=== PATIENT | female | born 1975 | race Caucasian/White ===

== ENCOUNTER 2020-10-14 06:16 | Outpatient (REF) | payer OTHER, SELFPAY ==
[2020-10-14 11:33] LABS: Alanine Aminotransferase 21 U/L (0-31); Aspartate Amino Transferase 23 U/L (5-31); Cholesterol 149 mg/dL; HDL Cholesterol 40 mg/dL; LDL Cholesterol Calculated 91 mg/dl; Triglycerides 91 mg/dL
== END 2020-10-14 06:17 | disposition home or self-care (01) ==
LOC: HO.HMGCLDS 06:16
PROVIDERS: PCP Internal Medicine; Visit Provider Internal Medicine
DX: E78.5 Hyperlipidemia, unspecified (principal)
CPT/HCPCS: 80061; 84450; 84460

== ENCOUNTER 2021-08-03 07:08 | Outpatient (REF) | payer OTHER, SELFPAY ==
[2021-08-03 12:12] LABS: Alanine Aminotransferase 29 U/L (0-31); Aspartate Amino Transferase 26 U/L (5-31); Cholesterol 177 mg/dL; HDL Cholesterol 55 mg/dL; LDL Cholesterol Calculated 105 mg/dl; Triglycerides 88 mg/dL
== END 2021-08-03 07:09 | disposition home or self-care (01) ==
LOC: HO.HMGCLDS 07:08
PROVIDERS: PCP Internal Medicine; Visit Provider Internal Medicine
DX: Z00.00 Encounter for general adult medical examination without abnormal findings (principal); E78.5 Hyperlipidemia, unspecified
CPT/HCPCS: 36415; 80061; 84450; 84460

== ENCOUNTER 2022-12-12 07:37 | Outpatient (REF) | payer OTHER, SELFPAY ==
[2022-12-12 12:05] LABS: Alanine Aminotransferase 25 U/L (0-31); Anion Gap 14 (12-20); Aspartate Amino Transferase 27 U/L (5-31); Blood Urea Nitrogen 18 mg/dL (9-16); Calcium 9.4 mg/dL (8.4-10.2); Carbon Dioxide 27 mmol/L (22-29); Chloride 103 mmol/L (96-108); Cholesterol 182 mg/dL; Estimated Glomerular Filt Rate > 60; Glucose Fasting 124 mg/dL (60-99); HDL Cholesterol 49 mg/dL; LDL Cholesterol Calculated 112 mg/dl; Potassium 4.1 mmol/L (3.3-5.1); Sodium 140 mmol/L (135-145); Triglycerides 108 mg/dL
== END 2022-12-12 07:38 | disposition home or self-care (01) ==
LOC: HO.HMGCLDS 07:37
PROVIDERS: PCP Internal Medicine; Visit Provider Internal Medicine
DX: E78.5 Hyperlipidemia, unspecified (principal); I10 Essential (primary) hypertension
CPT/HCPCS: 36415; 80048; 80061; 84450; 84460

== ENCOUNTER 2023-09-10 06:55 | Outpatient (REF) | payer OTHER, SELFPAY ==
[2023-09-10 12:04] LABS: Anion Gap 16 (12-20); Blood Urea Nitrogen 15 mg/dL (9-16); Calcium 10.1 mg/dL (8.4-10.2); Carbon Dioxide 27 mmol/L (22-29); Chloride 102 mmol/L (96-108); Cholesterol 188 mg/dL (<200); Estimated Glomerular Filt Rate > 60; Glucose Fasting 112 mg/dL (60-99); HDL Cholesterol 50 mg/dL (>40); LDL Cholesterol Calculated 113 mg/dL (<100); Sodium 141 mmol/L (135-145); Triglycerides 129 mg/dL (<150)
[2023-09-10 12:22] LABS: Estimated Average Glucose 120 mg/dL; Hemoglobin A1c % 5.8 % (<6.0)
== END 2023-09-10 06:56 | disposition home or self-care (01) ==
LOC: HO.HMGCLDS 06:55
PROVIDERS: PCP Internal Medicine; Visit Provider Internal Medicine
DX: Z00.01 Encounter for general adult medical examination with abnormal findings (principal); F41.1 Generalized anxiety disorder; I10 Essential (primary) hypertension; R73.01 Impaired fasting glucose; E78.5 Hyperlipidemia, unspecified
CPT/HCPCS: 36415; 80048; 80061; 83036

== ENCOUNTER 2023-09-12 09:39 | Outpatient (AMB) | payer OTHER, SELFPAY ==
[2023-09-12 09:55] VITALS: BP 132/84; PULSE 52; O2SAT 99; BMI 29.3
--- NOTE | 2023-09-12 09:55 | A.OFFPC_ITS ---
Vital Signs 09/12/23 09:55 Height 5 ft 3 in Weight 165 lb 4 oz BMI 29.3 BP 132/84 Blood Pressure Location Lt brachial Position Sitting Pulse 52 Pulse Source Pulse Oximeter Pulse Oximetry (%) 99 Oxygen Delivery Method Room Air Intake Visit Reasons: 4M Follow-up lipids Intake Note: pt is here to follow up for her lab results Allergies amlodipine Allergy (Unknown, Verified 11/04/23 03:38) rash amoxicillin [AMOXICILLIN] Allergy (Unknown, Verified 11/04/23 03:38) HIVES, rash lisinopril Allergy (Unknown, Verified 11/04/23 03:38) stomach pains Sulfa (Sulfonamide Antibiotics) [SULFA (SULFONAMIDE ANTIBIOTICS)] Allergy (Unknown, Verified 11/04/23 03:38) HIVES Medication List - Last Reconciled 11/04/23 by Janice Strauss MD atorvastatin 20 mg PO DAILY escitalopram oxalate 10 mg PO DAILY losartan 25 mg PO DAILY 90 days metoprolol tartrate 75 mg (1.5 x 50 mg) PO BID 90 days Tobacco use date assessed: 09/12/23 Dental Screening Dental Screen Date: 09/12/23 Did you have a dental visit in the last 12 months?: Yes Did you have a dental problem in the last 6 months where you did not have access to dental care?: No Was dental information given to patient?: Patient has dentist HPI 4M Follow-up lipids HPI Details 48-year-old lady here today for follow-u p on her lipids, generalized anxiety disorder, and hypertension. She is currently taking atorvastatin 20 mg once a day. Recent fasting labs showed normal electrolytes, renal function, and fasting lipid panel. [facility] [place] Medical History Impaired fasting glucose Annual visit for general adult medical examination with abnormal findings Essential hypertension Generalized anxiety disorder Dyslipidemia Social History Housing: House Patient Tobacco Use Status: Never used Tobacco e-Cigarette/Vaping Use: Never Used Second Hand Smoke Exposure: No Current occupational status: employed Cognitive needs: No Hearing needs: No Vision needs: Yes Questionnaire PHQ-9 Over the last 2 weeks, how often have you been bothered by any of the following problems? 1. Little interest or pleasure in doing things: not at all 2. Feeling down, depressed, or hopeless: not at all 3. Trouble falling or staying asleep, or sleeping too much: not at all 4. Feeling tired or having little energy: not at all 5. Poor appetite or overeating: not at all 6. Feeling bad about yourself - or that you are a failure or have let yourself or your family down: not at all 7. Trouble concentrating on things, such as reading the newspaper or watching television: not at all 8. Moving or speaking so slowly that other people could have noticed. Or the opposite - being so fidgety or restless that you have been moving around a lot more than usual: not at all 9. Thoughts that you would be better off or of hurting yourself in some way: not at all Total score: 0 Depression Screening Interpretation: Negative Depression Screening Done: Yes 21700 - PHQ-9 Billing: Yes Source: Developed by Drs. Evan Plummer, Rhoda Xiong, Negro Winters and colleagues, with an educational dorota from [employer]. Thrive Questionnaire Date Thrive assessed: 09/12/23 I am a: Patient What is your living situation today?: I have a steady place to live Within the past 12 months, did the food you bought not last and you didn't have the money to get more?: Never true Within the past 12 months, did you worry whether your food would run out before you got money to buy more?: Never true Do you have trouble paying for medicines?: No Do you have trouble getting transportation to medical appointments?: No Do you have trouble paying your heating and electricity bill?: No Do you have trouble taking care of your child, family member or friend?: No Do you have trouble with day-to-day activities such as bathing, preparing meals, shopping, managing finances, etc.?: No Are you currently unemployed and looking for a job?: No Are you interested in more education?: No AUDIT C Alcohol Use Questionnaire (AUDIT-C) 1. How often do you have a drink containing alcohol?: 2-4 times a month 2. How many drinks containing alcohol do you have on a typical day when you are drinking?: 1 or 2 3. How often do you have six or more drinks on one occasion?: Never Total Score: 2 LIZBETH-7 AMB Questionnaire LIZBETH-7 Date LIZBETH - 7 assessed: 09/12/23 Feeling nervous, anxious, or on edge: 0 = Not at all Not being able to stop or control worryin = Not at all Worrying too much about different things: 0 = Not at all Trouble relaxin = Not at all Being so restless that it is hard to sit still: 0 = Not at all Becoming easily annoyed or irritable: 0 = Not at all Feeling afraid as if something awful might happen: 0 = Not at all Total LIZBETH-7 score (0-4 normal; 5-9 mild; 10-14 moderate; 15-21 severe): 0 Source: Developed by Drs. Evan Plummer, Rhoda Xiong, Negro Winters and colleagues, with an educational dorota from [employer]. LIZBETH-7 Assessment Billing LIZBETH-7 Assessment Tool: LIZBETH-7 Assessment 95772 Review of Systems Const Denies body aches, Denies fatigue, Denies fever(s), Denies headache(s) and Denies weakness Eyes Denies change in vision ENT Denies dizziness, Denies headache(s), Denies nasal congestion, Denies nasal discharge and Denies sore throat Card Denies chest pain, Denies lightheadedness, Denies palpitations and Denies dyspnea Resp Denies chest congestion, Denies cough, Denies dyspnea and Denies wheezing GI Denies abdominal pain, Denies change in bowel habits and Denies heartburn Denies urinary frequency, Denies dysuria and Denies urinary urgency Musc Reports no additional complaints Skin/Breast Denies lesions and Denies rash Neuro Denies dizziness, Denies headache(s) and Denies weakness Psych Reports no additional complaints Endo Denies fatigue, Denies polydipsia, Denies polyuria and Denies palpitations Otis/Lymph Denies easy bruising Aller/Immun Denies seasonal rhinorrhea and Denies wheezing Physical exam (Primary Care) Vital Signs: Last Vital Signs Pulse 52 09/12/23 09:55 BP 132/84 09/12/23 09:55 Pulse Ox 99 09/12/23 09:55 Oxygen Delivery Method Room Air 09/12/23 09:55 BMI result Body Mass Index 29.3 Tobacco/Smoking Status: Tobacco use Status Tobacco use date assessed 09/12/23 09/12/23 10:01 Patient Tobacco Use Status Never used Tobacco 09/12/23 09:56 e-Cigarette/Vaping Use Never Used 09/12/23 09:56 PHQ-9: PHQ-9 Score PHQ-9: Total score 0 11/04/23 03:42 Depression Screening Interpretation: Negative Thrive Assessment: Date of Thrive Assessment Date Thrive assessed 09/12/23 09/12/23 10:09 Const General: cooperative, comfortable and no acute distress Orientation/consciousness: patient oriented x3 Limitations: no limitations HENMT Ears: hearing grossly normal bilaterally, external ears normal, TM's normal bilaterally and EAC's normal General nose exam: Normal external nose present, Normal nasal mucous membranes and turbinates present and No nasal discharge present Mouth: Normal oral and palatal mucosa present, oropharynx normal and moist muco us membranes Throat: Yes posterior oropharynx normal Eyes Pupils: Equal, round and reactive pupils present Neck Neck: Yes full ROM, Yes no lymphadenopathy and Yes supple Resp Effort & Inspection: normal respiratory effort and able to speak in complete sentences Auscultation: clear to auscultation bilaterally Cardio Rate: regular rate Rhythm: regular rhythm Heart sounds: S1 normal heart sound present and S2 normal heart sound present GI Inspection: Yes normal to inspection Palpation (GI): Soft to palpation, nontender and no masses Auscultation: normal bowel sounds General: Yes deferred (Goes to [facility] for her cervical cancer screening and routine exam) Back/Spine/Pelvis Back: No back tenderness Skin General skin exam: no rashes or lesions noted Neuro General: patient oriented x3, gait normal, tone normal, moves all extremities, Normal light touch and pain sensation and no focal motor deficits Cranial nerves: Yes Equal, round and reactive pupils present Cognition (Neuro): normal cognition Gait exam (Neuro): Normal gait present Motor exam (neuro): 5/5 motor strength present throughout Extrem General: Yes full ROM, Yes no joint enlargement, Yes no clubbing, cyanosis or edema, Yes no calf tenderness and Yes normal gait Psych Appearance: grossly normal Affect: normal affect Attitude: cooperative Thought process: Normal thought process present Thought content: Normal thought content present Results Reviewed Results Reviewed: RUN: 09/12/23 1026 PAGE 1 [facility] [address] [place] [id number] Light Bulb Replacer: Lee Guajardo M.D. Specimen Inquiry Name: Sera Heath Age/Sex: 48/F : 1975 Unit#: [id number] Attend Dr: Janice Strauss MD Re09/10/23 Status: DEP REF Location: [facility] Disch: SPEC : [id number] LINDA: 09/10/23 STATUS: COMP REQ : [id number] RECD: 09/10/[address]: Janice Strauss MD COMP: 09/10/23 ENTERED: 09/10/[address] [facility] [address]: ORDERED: Met Prof Fast, Lipid Panel Test Result Flag Reference Site Sodium 141 135-145 mmol/L Potassium 4.0 3.3-5.1 mmol/L CL 102 96-108 mmol/L CO2 27 22-29 mmol/L Gap 16 12-20 BUN 15 9-16 mg/dL Creat 0.83 0.5-1.4 mg/dL EGFR > 60 NOTE: For -[place] individuals, multiply the result by 1.210. Chronic Kidney Disease: Estimated GFR < 60 mL/min/1.73m2 Severe Kidney Disease: Estimated GFR < 15 mL/min/1.73m2 FBS 112 H 60-99 mg/dL A fasting glucose from 100-125 mg/dl is considered impaired (pre-diabetes). CA 10.1 # 8.4-10.2 mg/dL Triglyceride 129 <150 mg/dL Desirable Triglyceride: less than 150 mg/dL Borderline High Triglyceride 150-199 mg/dL High Triglyceride: 200-499 mg/dL Very High Triglyceride: greater than or equal to 5OO mg/dL Cholesterol 188 <200 mg/dL Desirable Cholesterol: less than 200 mg/dL Borderline High Cholesterol: 200-239 mg/dL High Cholesterol: greater than 239 mg/dL LDL Calculated 113 H <100 mg/dL Desirable LDL: less than 100 mg/dL Near Optimal/Above Optimal LDL: 110-129 mg/dL Borderline High LDL: 130-159 mg/dL High LDL: 160-189 mg/dL Very High LDL: greater than or equal to 190 mg/dL HDL 50 >40 mg/dL Desirable HDL: greater than 40 mg/dL Note: This HDL assay may give artificially low results in patients with liver disease. Assessment and Plan Assessment & Plan (1) Dyslipidemia: Code(s): E78.5 - Hyperlipidemia, unspecified Plan: Reviewed recent fasting lipid profile with patient with levels within normal limits . Continue with atorvastatin 20 mg daily , in addition to adherence to low-cholesterol diet and regular exercise, at least 30 minutes 3 to 4 times a week. Advised patient to make healthy food choices, eat more fruits, vegetables, whole grains, wild caught fish and low-fat dairy. Limit amount of meat and fried or fatty food products, as well as processed foods and fast foods. Follow-up scheduled with repeat fasting lipid panel in 6 months. (2) Impaired fasting glucose: Code(s): R73.01 - Impaired fasting glucose Plan: Your fasting blood sugars elevated above 100 mg/dL. Impaired glucose metabolism O2 at risk for developing diabetes mellitus type 2, as well as heart attack and stroke later on. Lifestyle changes at just weight loss, healthy eating habits, and regular exercise are important, and can prevent the progression to diabetes (3) Essential hypertension: Code(s): I10 - Essential (primary) hypertension Plan: Blood pressure at goal of less than 130/80. Continue with current medication. Reinforced importance of following a low sodium diet, getting regular exercise, and lowering stress levels. (4) Generalized anxiety disorder: Code(s): F41.1 - Generalized anxiety disorder Plan: Continue with escitalopram and buspirone Orders: Orders Alanine Aminotransferase 03/18/24 R73.01 - Impaired fasting glucose, Z00.01 - Encounter for general adult medical examination with abnormal findings, I10 - Essential (primary) hypertension, F41.1 - Generalized anxiety disorder, E78.5 - Hyperlipidemia, unspecified Aspartate Amino Transferase 03/18/24 R73.01 - Impaired fasting glucose, Z00.01 - Encounter for general adult medical examination with abnormal findings, I10 - Essential (primary) hypertension, F41.1 - Generalized anxiety disorder, E78.5 - Hyperlipidemia, unspecified Basic Metabolic Panel Fasting 03/18/24 R73.01 - Impaired fasting glucose, Z00.01 - Encounter for general adult medical examination with abnormal findings, I10 - Essential (primary) hypertension, F41.1 - Generalized anxiety disorder, E78.5 - Hyperlipidemia, unspecified Lipid Panel 03/18/24 R73.01 - Impaired fasting glucose, Z00.01 - Encounter for general adult medical examination with abnormal findings, I10 - Essential (primary) hypertension, F41.1 - Generalized anxiety disorder, E78.5 - Hyperlipidemia, unspecified Hemoglobin A1c 03/18/24 R73.01 - Impaired fasting glucose, Z00.01 - Encounter for general adult medical examination with abnormal findings, I10 - Essential (primary) hypertension, F41.1 - Generalized anxiety disorder, E78.5 - Hyperlipidemia, unspecified Vitamin D 25-OH Total 03/18/24 R73.01 - Impaired fasting glucose, Z00.01 - Encounter for general adult medical examination with abnormal findings, I10 - Essential (primary) hypertension, F41.1 - Generalized anxiety disorder, E78.5 - Hyperlipidemia, unspecified Coding Level of Care Code Est Pt Level 4 (15134) Diagnoses Dyslipidemia E78.5 Impaired fasting glucose R73.01 Essential hypertension I10 Generalized anxiety disorder F41.1 Additional Codes LIZBETH-7 Assessment Billing - LIZBETH-7 Assessment Tool: LIZBETH-7 Assessment 57100 ([id number])
== END 2023-09-12 12:51 | disposition home or self-care (01) ==
PROVIDERS: PCP Internal Medicine; Visit Provider Internal Medicine
DX: E78.5 Hyperlipidemia, unspecified (principal); R73.01 Impaired fasting glucose; I10 Essential (primary) hypertension; F41.1 Generalized anxiety disorder
CPT/HCPCS: 99214

== ENCOUNTER 2023-10-02 10:18 | Outpatient (AMB) | payer OTHER, SELFPAY ==
[2023-10-02 10:48] VITALS: BP 100/68; PULSE 63; TEMP 37.2; O2SAT 98; BMI 29.3
--- NOTE | 2023-10-02 10:48 | MHC.PC.OV ---
Vital Signs 10/02/23 10:48 Height 5 ft 3 in Weight 165 lb 4 oz BMI 29.3 BP 100/68 Blood Pressure Location Rt brachial Position Sitting Pulse 63 Pulse Source Pulse Oximeter Temp 99.0 F Temp Source Oral Pulse Oximetry (%) 98 Oxygen Delivery Method Room Air Intake Visit Reasons: Diarrhea x 5 days Intake Note: pt is here for diarrhea for 5 days no vomiting or nausea she just gets cramps and then diarrhea comes pt says she eats then comes right out Allergies amlodipine Allergy (Unknown, Verified 11/04/23 03:38) rash amoxicillin [AMOXICILLIN] Allergy (Unknown, Verified 11/04/23 03:38) HIVES, rash lisinopril Allergy (Unknown, Verified 11/04/23 03:38) stomach pains Sulfa (Sulfonamide Antibiotics) [SULFA (SULFONAMIDE ANTIBIOTICS)] Allergy (Unknown, Verified 11/04/23 03:38) HIVES Medication List - Last Reconciled 01/08/24 by Janice Strauss MD atorvastatin 20 mg PO DAILY escitalopram oxalate 10 mg PO DAILY losartan 25 mg PO DAILY 90 days metoprolol tartrate 75 mg (1.5 x 50 mg) PO BID 90 days Tobacco use date assessed: 10/02/23 HPI Diarrhea x 5 days HPI Details 49-year-old lady here today complaining of intermittent episodes of loose stool present for the last 5 days peer denies any accompanying fever, no nausea, no vomiting. Patient does report having intermittent episodes of lower abdominal cramping followed by diarrhea. Denies any blood in stool. Otherwise she has been feeling well, no other household members have same complaints.. No recent travel or new food intake reported [facility] Medical History Impaired fasting glucose Annual visit for general adult medical examination with abnormal findings Essential hypertension Generalized anxiety disorder Dyslipidemia Social History Housing: House Patient Tobacco Use Status: Never used Tobacco e-Cigarette/Vaping Use: Never Used Second Hand Smoke Exposure: No Current occupational status: employed Cognitive needs: No Hearing needs: No Vision needs: Yes Questionnaire PHQ-9 Over the last 2 weeks, how often have you been bothered by any of the following problems? Depression Screening Interpretation: Negative Depression Screening Done: Yes Source: Developed by Drs. Evan Plummer, Rhoda Xiong, Negro Winters and colleagues, with an educational dorota from [employer]. Thrive Questionnaire Date Thrive assessed: 09/12/23 LIZBETH-7 AMB Questionnaire LIZBETH-7 Date LIZBETH - 7 assessed: 09/12/23 Source: Developed by Drs. Evan Plummer, Rhoda Xiong, Negro Winters and colleagues, with an educational dorota from [employer]. Review of Systems Const All systems reviewed & are unremarkable except as noted in HPI and below Physical exam (Primary Care) Vital Signs: Last Vital Signs Temp 99.0 F 10/02/23 10:48 Pulse 63 10/02/23 10:48 BP 100/68 10/02/23 10:48 Pulse Ox 98 10/02/23 10:48 Oxygen Delivery Method Room Air 10/02/23 10:48 BMI result Body Mass Index 29.3 Tobacco/Smoking Status: Tobacco use Status Tobacco use date assessed 10/02/23 10/02/23 10:54 Patient Tobacco Use Status Never used Tobacco 10/02/23 10:54 e-Cigarette/Vaping Use Never Used 10/02/23 10:54 Depression Screening Interpretation: Negative Thrive Assessment: Date of Thrive Assessment Date Thrive assessed 09/12/23 10/02/23 10:54 Const General: no acute distress Orientation/consciousness: patient oriented x3 HENMT Ears: EAC's normal Mouth: oropharynx normal and moist mucous membranes Throat: Yes posterior oropharynx normal Neck Neck: Yes full ROM, Yes no lymphadenopathy and Yes supple Resp Effort & Inspection: normal respiratory effort and able to speak in complete sentences Auscultation: clear to auscultation bilaterally Cardio Rate: regular rate Rhythm: regular rhythm Heart sounds: S1 normal heart sound present and S2 normal heart sound present GI Inspection: Yes normal to inspection Palpation (GI): Soft to palpation, Tenderness to palpation present (GI) (Lower abdominal area), no guarding, no masses and No Rebound tenderness present Auscultation: Hyperactive bowel sounds present Back/Spine/Pelvis Back: No back tenderness Skin General skin exam: no rashes or lesions noted Neuro General: patient oriented x3, gait normal, tone normal, moves all extremities, Normal light touch and pain sensation and no focal motor deficits Cognition (Neuro): normal cognition Gait exam (Neuro): Normal gait present Motor exam (neuro): 5/5 motor strength present throughout Assessment and Plan Assessment & Plan (1) Diarrhea in adult patient: Code(s): R19.7 - Diarrhea, unspecified Plan: Patient states that she has taken some [id number] antidiarrheals which affords no complete improvement, ordered CBC with differential and basic metabolic panel, empirically treated with ciprofloxacin 750 mg 1 tablet every 12 hours for 3 days only. Stay well-hydrated, go on a bland diet, return to clinic if after 3 days no improvement of symptoms Orders: Orders Complete Blood Count Auto Diff 10/02/23 R19.7 - Diarrhea, unspecified Basic Metabolic Panel Fasting 10/02/23 R19.7 - Diarrhea, unspecified Medications: New ciprofloxacin HCl 750 mg PO Q12H 6 tabs 0RF 3 days Coding Level of Care Code Est Pt Level 3 (93224) Diagnoses Diarrhea in adult patient R19.7
== END 2023-10-02 11:43 | disposition home or self-care (01) ==
PROVIDERS: PCP Internal Medicine; Visit Provider Internal Medicine
DX: R19.7 Diarrhea, unspecified (principal)
CPT/HCPCS: 99213

== ENCOUNTER 2023-10-02 11:45 | Outpatient (REF) | payer OTHER, SELFPAY ==
[2023-10-02 13:21] LABS: MANUAL DIFF FLAG NO
[2023-10-02 13:31] LABS: Basophils Percent Auto 0.3 % (0-2); Eosinophils Percent Auto 0.2 % (0-4); Hematocrit 41.3 % (37.0-47.0); Hemoglobin 13.6 g/dl (12.0-16.0); Imm Gran Abs Auto 0.03 X10*3/uL (0.00-0.03); Imm Gran Pct Auto 0.3 % (0.0-0.4); Lymphocytes Absolute Auto 1.4 X10*3/uL (1.2-4.9); Lymphocytes Percent Auto 12.6 % (20-40); Mean Corpuscular HGB Conc 32.9 g/dl (31.0-35.0); Mean Corpuscular Hemoglobin 29.6 pg (27.0-33.0); Mean Corpuscular Volume 89.8 fL (80.0-98.0); Mean Platelet Volume 12.3 fL (9.4-12.3); Monocytes Absolute Auto 1.4 X10*3/uL (0.1-1.2); Monocytes Percent Auto 12.3 % (2-11); Neutrophils Absolute Auto 8.3 x10*3/uL (2.0-8.3); Neutrophils Percent Auto 74.3 % (45-73); Platelet Count 178 X10*3/uL (160-400); White Blood Count 11.1 X10*3/uL (4.8-10.8)
[2023-10-02 14:17] LABS: Anion Gap 15 (12-20); Blood Urea Nitrogen 13 mg/dL (9-16); Calcium 9.4 mg/dL (8.4-10.2); Carbon Dioxide 26 mmol/L (22-29); Chloride 101 mmol/L (96-108); Estimated Glomerular Filt Rate > 60; Glucose Fasting 100 mg/dL (60-99); Potassium 3.4 mmol/L (3.3-5.1); Sodium 139 mmol/L (135-145)
== END 2023-10-02 11:46 | disposition home or self-care (01) ==
LOC: HO.HMGCLDS 11:45
PROVIDERS: PCP Internal Medicine; Visit Provider Internal Medicine
DX: R19.7 Diarrhea, unspecified (principal)
CPT/HCPCS: 36415; 80048; 85025

== ENCOUNTER 2023-10-23 07:34 | Outpatient (REF) | payer OTHER, SELFPAY ==
[2023-10-23 11:49] LABS: Anion Gap 12 (12-20); Blood Urea Nitrogen 14 mg/dL (9-16); Carbon Dioxide 25 mmol/L (22-29); Chloride 106 mmol/L (96-108); Estimated Glomerular Filt Rate > 60; Sodium 139 mmol/L (135-145)
[2023-10-23 12:13] LABS: Creatinine Urine 238.85 mg/dL; Protein/Creatinine Ratio, Ur 0.04 (<0.2); Total Protein Urine Random 10 mg/dL (<12)
== END 2023-10-23 07:35 | disposition home or self-care (01) ==
LOC: HO.HMGCLDS 07:34
PROVIDERS: PCP Internal Medicine; Visit Provider Internal Medicine Nephrology
DX: I10 Essential (primary) hypertension (principal)
CPT/HCPCS: 36415; 80051; 82565; 82570; 84156; 84520

== ENCOUNTER → 2023-10-24 16:13 | Outpatient (BNVA) | payer OTHER, SELFPAY | PROVIDERS: PCP Internal Medicine; Visit Provider Internal Medicine Nephrology ==

== ENCOUNTER 2023-11-07 07:26 | Outpatient (REF) | payer OTHER, SELFPAY ==
[2023-11-07 11:59] LABS: Appearance Urine Clear; Color Urine Yellow; Glucose Urine UA Negative (Negative); Leukocyte Esterase Urine Negative (Negative); Nitrite Urine Negative (Negative); PH 5.5 (5.0-9.0); UMIC TRIGGER UA YES; Urine Blood Small (1+) (Negative); Urine Ketones Negative (Negative); Urine Protein Negative (Neg-Trace)
[2023-11-07 12:21] LABS: Bacteria Urine None Seen (None Seen); Hyaline Casts Urine 0-2 /LPF (0-2); RBC Urine 0-2 /HPF (0-2); WBC Urine 0-5 /HPF (0-5)
== END 2023-11-07 07:27 | disposition home or self-care (01) ==
LOC: HO.HMGCLDS 07:26
PROVIDERS: PCP Internal Medicine; Visit Provider Internal Medicine Hypertension Specialist
DX: N39.0 Urinary tract infection, site not specified (principal)
CPT/HCPCS: 81001; 87086

== ENCOUNTER 2024-01-21 15:52 | Outpatient (AMB) | payer OTHER, SELFPAY ==
--- NOTE | 2024-01-21 16:32 | HO.NEPHOV ---
HPI HPI Comments History of Present Illness Details I had the delight of seeing Sera in follow-up of her hypertension. She has gained some weight. She does not have any headache, visual disturbances, chest pain, shortness of breath, proximal nocturnal dyspnea, orthopnea, pedal edema or any urinary symptoms. She is compliant with her medications. She has no history of retinopathy, LVH, or proteinuria. She is compliant with her medications. She is on metoprolol and losartan. She is not very rigid with low-sodium diet. She feels well otherwise. Her renal functions are normal. [facility] Medical History Impaired fasting glucose Annual visit for general adult medical examination with abnormal findings Essential hypertension Generalized anxiety disorder Dyslipidemia Social History Housing: House Patient Tobacco Use Status: Never used Tobacco e-Cigarette/Vaping Use: Never Used Second Hand Smoke Exposure: No Current occupational status: employed Cognitive needs: No Hearing needs: No Vision needs: Yes Vital Signs 01/21/24 16:33 Height 5 ft 3 in Weight 171 lb 2 oz BMI 30.3 BP 130/80 Blood Pressure Location Rt brachial Position Sitting Pulse 59 Pulse Source Pulse Oximeter Pulse Oximetry (%) 98 Oxygen Delivery Method Room Air Physical Exam Vital Signs: Last Vital Signs Pulse 59 01/21/24 16:33 BP 160/80 H 01/21/24 16:33 Pulse Ox 98 01/21/24 16:33 Oxygen Delivery Method Room Air 01/21/24 16:33 BMI result Body Mass Index 30.3 Const General: comfortable and no acute distress Orientation/consciousness: patient oriented x3 HEENT Head: Yes normocephalic Mouth: Normal oral and palatal mucosa present Eyes EOM: EOMs intact bilaterally Neck Neck: Yes supple Resp Auscultation: clear to auscultation bilaterally Cardio Jugular venous distension: no JVD Rate: regular rate GI Palpation (GI): Soft to palpation Auscultation: normal bowel sounds General: Yes no CVA tenderness Back/Spine/Pelvis Back: no CVA tenderness Skin General skin exam: no rashes or lesions noted Neuro General: patient oriented x3 and moves all extremities Extrem General: Yes no pedal edema Assessment & Plan Assessment & Plan (1) Hypertension: Code(s): I10 - Essential (primary) hypertension Qualifiers: Hypertension type: primary hypertension Qualified Code(s): I10 - Essential (primary) hypertension Plan Sera has hypertension for long time. She has had skin rashes from hydrochlorothiazide. She is currently on metoprolol and losartan. Her renal function normal. She does not have any proteinuria or retinopathy. She has no history of coronary artery disease, CHF, YAYA, PAD or CVA. She should be on a low-sodium diet. She should lose weight. She should monitor her blood pressure at home. I asked her to continue current dose of metoprolol and losartan. If her blood pressure control is not at goal I plan to increase her losartan to 50 mg at the next visit. I did not make any other medication changes today. All recent data reviewed. [place] [facility] She is going to discuss with PCP. Follow-up given. Coding Level of Care Code Est Pt Level 4 (85318) Diagnoses Primary hypertension I10 Hypertension type: primary hypertension Results Reviewed Nephrology Results: Hgb 13.6 g/dl (12.0-16.0) 10/02/23 WBC 11.1 X10*3/uL (4.8-10.8) H 10/02/23 Plt Count 178 X10*3/uL (160-400) 10/02/23 Sodium 139 mmol/L (135-145) 10/23/23 Potassium 4.0 mmol/L (3.3-5.1) 10/23/23 Chloride 106 mmol/L (96-108) 10/23/23 Carbon Dioxide 25 mmol/L (22-29) 10/23/23 BUN 14 mg/dL (9-16) 10/23/23 Creatinine 0.76 mg/dL (0.5-1.4) 10/23/23 Calcium 9.4 mg/dL (8.4-10.2) 10/02/23 Urine Protein Negative mg/dL (Neg-Trace) 11/07/23 Urine Creatinine 238.85 mg/dL 10/23/23 Protein/Creatinin Ratio 0.04 (<0.2) 10/23/23
[2024-01-21 16:33] VITALS: BP 130/80; PULSE 59; O2SAT 98; BMI 30.3
== END 2024-01-21 16:57 | disposition home or self-care (01) ==
PROVIDERS: PCP Internal Medicine; Visit Provider Internal Medicine Nephrology
DX: I10 Essential (primary) hypertension (principal)
CPT/HCPCS: 99214

== ENCOUNTER → 2024-01-21 15:52 | Outpatient (BNVA) | payer OTHER, SELFPAY | PROVIDERS: PCP Internal Medicine; Visit Provider Internal Medicine Nephrology ==

== ENCOUNTER 2024-05-11 07:09 | Outpatient (REF) | payer OTHER, SELFPAY ==
[2024-05-11 12:26] LABS: Estimated Average Glucose 126 mg/dL; Hemoglobin A1C 151.9646 umol/L
[2024-05-11 13:06] LABS: Alanine Aminotransferase 27 U/L (0-31); Anion Gap 15 (12-20); Aspartate Amino Transferase 24 U/L (5-31); Blood Urea Nitrogen 16 mg/dL (9-16); Calcium 9.4 mg/dL (8.4-10.2); Carbon Dioxide 27 mmol/L (22-29); Chloride 105 mmol/L (96-108); Cholesterol 176 mg/dL (<200); Estimated Glomerular Filt Rate > 60; Glucose Fasting 135 mg/dL (60-99); HDL Cholesterol 45 mg/dL (>40); LDL Cholesterol Calculated 108 mg/dL (<100); Sodium 143 mmol/L (135-145); Triglycerides 116 mg/dL (<150); Vitamin D 25-OH Total 41.5 ng/mL (>30)
== END 2024-05-11 07:10 | disposition home or self-care (01) ==
LOC: HO.HMGCLDS 07:09
PROVIDERS: PCP Internal Medicine; Visit Provider Internal Medicine
DX: Z00.01 Encounter for general adult medical examination with abnormal findings (principal); R73.01 Impaired fasting glucose; I10 Essential (primary) hypertension; F41.1 Generalized anxiety disorder; E78.5 Hyperlipidemia, unspecified
CPT/HCPCS: 36415; 80048; 80061; 82306; 83036; 84450; 84460

== ENCOUNTER 2024-05-12 08:15 | Outpatient (AMB) | payer OTHER, SELFPAY ==
[2024-05-12 08:19] VITALS: BP 146/80; PULSE 50; O2SAT 97; BMI 30.1
--- NOTE | 2024-05-12 08:19 | A.OFFPC_ITS ---
Vital Signs 05/12/24 08:19 Height 5 ft 3 in Weight 170 lb BMI 30.1 BP 146/80 H Blood Pressure Location Lt brachial Position Sitting Pulse 50 Pulse Source Pulse Oximeter Pulse Oximetry (%) 97 Oxygen Delivery Method Room Air Intake Visit Reasons: Annual PE Intake Note: Pt is here today for her PE: Last mammogram 10/08/23, papsmear 05/24/23 Allergies amlodipine Allergy (Unknown, Verified 08/17/24 23:21) rash amoxicillin [AMOXICILLIN] Allergy (Unknown, Verified 08/17/24 23:21) HIVES, rash lisinopril Allergy (Unknown, Verified 08/17/24 23:21) stomach pains Sulfa (Sulfonamide Antibiotics) [SULFA (SULFONAMIDE ANTIBIOTICS)] Allergy (Unknown, Verified 08/17/24 23:21) HIVES Medication List - Last Reconciled 08/17/24 by Janice Strauss MD atorvastatin 20 mg PO DAILY escitalopram oxalate 10 mg PO DAILY losartan 25 mg PO DAILY 90 days metoprolol tartrate 75 mg (1.5 x 50 mg) PO BID 90 days Tobacco use date assessed: 05/12/24 Dental Screening Dental Screen Date: 05/12/24 Did you have a dental visit in the last 12 months?: Yes Did you have a dental problem in the last 6 months where you did not have access to dental care?: No Was dental information given to patient?: Patient has dentist HPI Annual PE HPI Details 49 year-old lady with history of hyperli pidemia, generalized anxiety disorder, and hypertension, here today for physical exam.. She is up-to-date with her cervical cancer screening and screening mammogram, due later again this year. Has been compliant with taking her medications and tries to follow recommended diet. Feels well with no complaints at present time. Had recent fasting labs done yesterday which showed fasting blood sugar 135 mg/dL, with hemoglobin A1c at 6%, but lipids are within normal limits as well as vitamin-D level [facility] Medical History Impaired fasting glucose Annual visit for general adult medical examination with abnormal findings Essential hypertension Generalized anxiety disorder Dyslipidemia Social History Housing: House Patient Tobacco Use Status: Never used Tobacco e-Cigarette/Vaping Use: Never Used Second Hand Smoke Exposure: No Current occupational status: employed Cognitive needs: No Hearing needs: No Vision needs: Yes Questionnaire PHQ-9 Over the last 2 weeks, how often have you been bothered by any of the following problems? 1. Little interest or pleasure in doing things: not at all 2. Feeling down, depressed, or hopeless: not at all 3. Trouble falling or staying asleep, or sleeping too much: not at all 4. Feeling tired or having little energy: not at all 5. Poor appetite or overeating: not at all 6. Feeling bad about yourself - or that you are a failure or have let yourself or your family down: not at all 7. Trouble concentrating on things, such as reading the newspaper or watching television: not at all 8. Moving or speaking so slowly that other people could have noticed. Or the opposite - being so fidgety or restless that you have been moving around a lot more than usual: not at all 9. Thoughts that you would be better off or of hurting yourself in some way: not at all Total score: 0 Depression Screening Interpretation: Negative Depression Screening Done: Yes 38592 - PHQ-9 Billing: Yes Source: Developed by Drs. Evan Plummer, Rhoda Xiong, Negro Winters and colleagues, with an educational dorota from [employer]. Thrive Questionnaire Date Thrive assessed: 05/12/24 I am a: Patient What is your living situation today?: I have a steady place to live Within the past 12 months, did the food you bought not last and you didn't have the money to get more?: Never true Within the past 12 months, did you worry whether your food would run out before you got money to buy more?: Never true Do you have trouble paying for medicines?: No Do you have trouble getting transportation to medical appointments?: No Do you have trouble paying your heating and electricity bill?: No Do you have trouble taking care of your child, family member or friend?: No Do you have trouble with day-to-day activities such as bathing, preparing meals, shopping, managing finances, etc.?: No Are you currently unemployed and looking for a job?: No Are you interested in more education?: No THRIVE Score: 0 AUDIT C Alcohol Use Questionnaire (AUDIT-C) 1. How often do you have a drink containing alcohol?: 2-4 times a month 2. How many drinks containing alcohol do you have on a typical day when you are drinking?: 1 or 2 3. How often do you have six or more drinks on one occasion?: Never Total Score: 2 LIZBETH-7 AMB Questionnaire LIZBETH-7 Date LIZBETH - 7 assessed: 05/12/24 Feeling nervous, anxious, or on edge: 0 = Not at all Not being able to stop or control worryin = Not at all Worrying too much about different things: 0 = Not at all Trouble relaxin = Not at all Being so restless that it is hard to sit still: 0 = Not at all Becoming easily annoyed or irritable: 0 = Not at all Feeling afraid as if something awful might happen: 0 = Not at all Total LIZBETH-7 score (0-4 normal; 5-9 mild; 10-14 moderate; 15-21 severe): 0 Source: Developed by Drs. Evan Plummer, Rhoda Xiong, Negro Winters and colleagues, with an educational dorota from [employer]. LIZBETH-7 Assessment Billing LIZBETH-7 Assessment Tool: LIZBETH-7 Assessment 69971 Review of Systems Const Denies body aches, Denies fatigue, Denies fever(s), Denies headache(s) and Denies weakness Eyes Denies change in vision ENT Denies dizziness, Denies headache(s), Denies nasal congestion, Denies nasal discharge and Denies sore throat Card Denies chest pain, Denies lightheadedness, Denies palpitations and Denies dyspnea Resp Denies chest congestion, Denies cough, Denies dyspnea and Denies wheezing GI Denies abdominal pain, Denies change in bowel habits and Denies heartburn Denies urinary frequency, Denies dysuria and Denies urinary urgency Musc Reports no additional complaints Skin/Breast Denies lesions and Denies rash Neuro Denies dizziness, Denies headache(s) and Denies weakness Psych Reports no additional complaints Endo Denies fatigue, Denies polydipsia, Denies polyuria and Denies palpitations Otis/Lymph Denies easy bruising Aller/Immun Denies seasonal rhinorrhea and Denies wheezing Physical exam (Primary Care) Vital Signs: Last Vital Signs Pulse 50 05/12/24 08:19 BP 146/80 H 05/12/24 08:19 Pulse Ox 97 05/12/24 08:19 Oxygen Delivery Method Room Air 05/12/24 08:19 Care Plan Goal for BP management: Continue with current dose of losartan and metoprolol, and reinforced importance of following a low-salt diet and getting regular exercise BMI result Body Mass Index 30.1 Tobacco/Smoking Status: Tobacco use Status Tobacco use date assessed 05/12/24 05/12/24 08:22 Patient Tobacco Use Status Never used Tobacco 05/12/24 08:22 e-Cigarette/Vaping Use Never Used 05/12/24 08:22 PHQ-9: PHQ-9 Score PHQ-9: Total score 0 05/12/24 09:01 Depression Screening Interpretation: Negative Thrive Assessment: Date of Thrive Assessment Date Thrive assessed 05/12/24 05/12/24 08:41 Advance Care Planning discussion: Completed/Scanned Date of discussion: 05/12/24 Who was present: patient Forms completed: Health Care Proxy Time spent: 16-45 minutes Actual minutes spent: 16 Const General: no acute distress Orientation/consciousness: patient oriented x3 HENMT Ears: EAC's normal Mouth: oropharynx normal and moist mucous membranes Throat: Yes posterior oropharynx normal Neck Neck: Yes full ROM, Yes no lymphadenopathy and Yes supple Resp Effort & Inspection: normal respiratory effort and able to speak in complete sentences Auscultation: clear to auscultation bilaterally Cardio Rate: regular rate Rhythm: regular rhythm Heart sounds: S1 normal heart sound present and S2 normal heart sound present GI Inspection: Yes normal to inspection Palpation (GI): Soft to palpation, Tenderness to palpation present (GI) (Lower abdominal area), no guarding, no masses and No Rebound tenderness present Auscultation: Hyperactive bowel sounds present Back/Spine/Pelvis Back: No back tenderness Skin General skin exam: no rashes or lesions noted Neuro General: patient oriented x3, gait normal, tone normal, moves all extremities, Normal light touch and pain sensation and no focal motor deficits Cognition (Neuro): normal cognition Gait exam (Neuro): Normal gait present Motor exam (neuro): 5/5 motor strength present throughout Results Reviewed Results Reviewed: Name: Sera Heath Age/Sex: 49/F : 1975 Unit#: [id number] Attend Dr: Janice Strauss MD Re05/11/24 Status: DEP REF Location: [facility] Disch: SPEC : [id number] LINDA: 05/11/24 STATUS: COMP REQ : [id number] RECD: 05/11/24-[address]: Janice Strauss MD COMP: 05/11/24 ENTERED: 05/11/24 [facility] DR: ORDERED: Met Prof Fast, AST, ALT, Lipid Panel, Vitamin D 25-OH Test Result Flag Reference Sodium 143 135-145 mmol/L Potassium 4.0 3.3-5.1 mmol/L CL 105 96-108 mmol/L CO2 27 22-29 mmol/L Gap 15 12-20 BUN 16 9-16 mg/dL Creat 0.84 0.5-1.4 mg/dL EGFR > 60 NOTE: For -Brazilian individuals, multiply the result by 1.210. Chronic Kidney Disease: Estimated GFR < 60 mL/min/1.73m2 Severe Kidney Disease: Estimated GFR < 15 mL/min/1.73m2 FBS 135 H 60-99 mg/dL A fasting glucose of 126 mg/dl or greater on more than one occasion is considered diagnostic of diabetes. CA 9.4 8.4-10.2 mg/dL AST (GOT) 24 5-31 U/L ALT (GPT) 27 0-31 U/L Triglyceride 116 <150 mg/dL Desirable Triglyceride: less than 150 mg/dL Borderline High Triglyceride 150-199 mg/dL High Triglyceride: 200-499 mg/dL Very High Triglyceride: greater than or equal to 5OO mg/dL Cholesterol 176 <200 mg/dL Desirable Cholesterol: less than 200 mg/dL Borderline High Cholesterol: 200-239 mg/dL High Cholesterol: greater than 239 mg/dL LDL Calculated 108 H <100 mg/dL Desirable LDL: less than 100 mg/dL Near Optimal/Above Optimal LDL: 110-129 mg/dL Borderline High LDL: 130-159 mg/dL High LDL: 160-189 mg/dL Very High LDL: greater than or equal to 190 mg/dL HDL 45 >40 mg/dL Desirable HDL: greater than 40 mg/dL Note: This HDL assay may give artificially low results in patients with liver disease. Vit D 25-OH Tot 41.5 >30 ng/mL Health Based Reference Values* < 20 ng/mL Deficient 20-30 ng/mL Insufficient > 30 ng/mL Sufficient Laboratory Tests 05/11/24 07:23 Estimat Average Glucose 126 Hemoglobin A1c % 6.0 Assessment and Plan Assessment & Plan (1) Annual visit for general adult medical examination with abnormal findings: Code(s): Z00.01 - Encounter for general adult medical examination with abnormal findings Plan: Recent fasting lab results were reviewed with patient. Continue with regular dental visit every 6 months and regular eye exams, at least every 2 years. Take adequate calcium in diet and vitamin-D 3 at 2000 IU per cap once a day, in addition to weight-bearing exercises to help maintain good muscle tone and weight control. Instructed to do self-breast exam, and r continue to get yearly mammogram which is currently up-to-date together with her cervical cancer screening. Reminded to get her yearly flu vaccine and updated COVID booster. Does not want to get screening colonoscopy but wants to do the Cologuard testing instead, ordered today (2) Dyslipidemia: Code(s): E78.5 - Hyperlipidemia, unspecified Plan: Lipids are within normal limits, continue with atorvastatin 20 mg daily (3) Generalized anxiety disorder: Code(s): F41.1 - Generalized anxiety disorder Plan: Stable controlled on escitalopram, will continue at 10 mg once a day. (4) Essential hypertension: Code(s): I10 - Essential (primary) hypertension Plan: Blood pressure mildly elevated this visit, will continue to monitor, Continue with current medication. Reinforced importance of following a low sodium diet, getting regular exercise, and lowering stress levels. (5) Impaired fasting glucose: Code(s): R73.01 - Impaired fasting glucose Plan: Your previous fasting blood sugars were elevated above 100 mg/dL. Impaired glucose metabolism increases the risk for developing diabetes mellitus type 2, as well as heart attack and stroke later on. Lifestyle changes that promotes weight loss, healthy eating habits, and regular exercise are important, and can prevent the progression to diabetes (6) Advanced directives, counseling/discussion: Code(s): Z71.89 - Other specified counseling Plan: Initiated the conversation about Advanced Directives. Advanced Directives help patients prepare for current and future decisions about their medical treatment and place of care. Discussed with patient that it is a process where a patients current condition and prognosis are reviewed, their wishes for information regarding their illness are elicited, and likely medical dilemmas are presented and options discussed. Healthcare proxy form completed today. The form can be amended as needed, reviewed yearly and make changes as needed Orders: Orders Hemoglobin A1c 6 Months E78.5 - Hyperlipidemia, unspecified, R73.01 - Impaired fasting glucose, Z00.01 - Encounter for general adult medical examination with abnormal findings, I10 - Essential (primary) hypertension, F41.1 - Generalized anxiety disorder Alanine Aminotransferase 6 Months E78.5 - Hyperlipidemia, unspecified, R73.01 - Impaired fasting glucose, Z00.01 - Encounter for general adult medical examination with abnormal findings, I10 - Essential (primary) hypertension, F41.1 - Generalized anxiety disorder Aspartate Amino Transferase 6 Months E78.5 - Hyperlipidemia, unspecified, R73.01 - Impaired fasting glucose, Z00.01 - Encounter for general adult medical examination with abnormal findings, I10 - Essential (primary) hypertension, F41.1 - Generalized anxiety disorder Lipid Panel 6 Months E78.5 - Hyperlipidemia, unspecified, R73.01 - Impaired fasting glucose, Z00.01 - Encounter for general adult medical examination with abnormal findings, I10 - Essential (primary) hypertension, F41.1 - Generalized anxiety disorder Referrals Cologuard Test Z12.11 - Encounter for screening for malignant neoplasm of colon, Z12.12 - Encounter for screening for malignant neoplasm of rectum Medications: Refilled atorvastatin 20 mg PO DAILY 90 tabs 3RF E78.5 - Hyperlipidemia, unspecified escitalopram oxalate 10 mg PO DAILY 90 tabs 3RF F41.1 - Generalized anxiety disorder Coding Level of Care Code Est Pt Prev Care 40-64y(97362) Diagnoses Annual visit for general adult medical examination with abnormal findings Z00.01 Dyslipidemia E78.5 Generalized anxiety disorder F41.1 Essential hypertension I10 Impaired fasting glucose R73.01 Advanced directives, counseling/discussion Z71.89 Additional Codes LIZBETH-7 Assessment Billing - LIZBETH-7 Assessment Tool: LIZBETH-7 Assessment 75464 ([id number]) Vital Signs *Quality* - Advance Care Planning discussion: Completed/Scanned ([id number]) Vital Signs *Quality* - Time spent: 16-45 minutes ([id number])
== END 2024-05-12 09:04 | disposition home or self-care (01) ==
PROVIDERS: PCP Internal Medicine; Visit Provider Internal Medicine
DX: Z00.01 Encounter for general adult medical examination with abnormal findings (principal); E78.5 Hyperlipidemia, unspecified; F41.1 Generalized anxiety disorder; I10 Essential (primary) hypertension; R73.01 Impaired fasting glucose; Z71.89 Other specified counseling; Z00.00 Encounter for general adult medical examination without abnormal findings
CPT/HCPCS: 1123F; 99499

== ENCOUNTER 2024-08-18 15:20 | Outpatient (AMB) | payer OTHER, SELFPAY ==
[2024-08-18 15:29] VITALS: BP 140/84; PULSE 51; O2SAT 99; BMI 30.5
--- NOTE | 2024-08-18 15:29 | HO.NEPHOV ---
Vital Signs 08/18/24 15:29 Height 5 ft 3 in Weight 172 lb 4 oz BMI 30.5 BP 140/84 H Blood Pressure Location Lt brachial Position Sitting Pulse 51 Pulse Source Pulse Oximeter Pulse Oximetry (%) 99 Oxygen Delivery Method Room Air Intake Visit Reasons: 6 mon follow up- Conf Assistant Baseball Coach Required: No Accompanied by: Self / Same As Patient Allergies amlodipine Allergy (Unknown, Verified 08/17/24 23:21) rash amoxicillin [AMOXICILLIN] Allergy (Unknown, Verified 08/17/24 23:21) HIVES, rash lisinopril Allergy (Unknown, Verified 08/17/24 23:21) stomach pains Sulfa (Sulfonamide Antibiotics) [SULFA (SULFONAMIDE ANTIBIOTICS)] Allergy (Unknown, Verified 08/17/24 23:21) HIVES HPI Comments Details: I had the delight of seeing Sera in follow-up of her hypertension. She does not have any headache, visual disturbances, chest pain, shortness of breath, proximal nocturnal dyspnea, orthopnea, pedal edema or any urinary symptoms. She is compliant with her medications. She has no history of retinopathy, LVH, or proteinuria. She is compliant with her medications. She is on metoprolol and losartan. She is not very rigid with low-sodium diet. She feels well otherwise. Her renal functions are normal. [facility] Medical History Impaired fasting glucose Annual visit for general adult medical examination with abnormal findings Essential hypertension Generalized anxiety disorder Dyslipidemia Social History Housing: House Patient Tobacco Use Status: Never used Tobacco e-Cigarette/Vaping Use: Never Used Second Hand Smoke Exposure: No Current occupational status: employed Cognitive needs: No Hearing needs: No Vision needs: Yes Physical Exam Vital Signs: Last Vital Signs Pulse 51 08/18/24 15:29 BP 140/84 H 08/18/24 15:29 Pulse Ox 99 08/18/24 15:29 Oxygen Delivery Method Room Air 08/18/24 15:29 BMI result Body Mass Index 30.5 Const General: comfortable and no acute distress Orientation/consciousness: patient oriented x3 HEENT Head: Yes normocephalic Mouth: Normal oral and palatal mucosa present Eyes EOM: EOMs intact bilaterally Neck Neck: Yes supple Resp Auscultation: clear to auscultation bilaterally Cardio Jugular venous distension: no JVD Rate: regular rate GI Palpation (GI): Soft to palpation Auscultation: normal bowel sounds General: Yes no CVA tenderness Back/Spine/Pelvis Back: no CVA tenderness Skin General skin exam: no rashes or lesions noted Neuro General: patient oriented x3 and moves all extremities Extrem General: Yes no pedal edema Results Reviewed Nephrology Results: Hgb 13.6 g/dl (12.0-16.0) 10/02/23 WBC 11.1 X10*3/uL (4.8-10.8) H 10/02/23 Plt Count 178 X10*3/uL (160-400) 10/02/23 Sodium 143 mmol/L (135-145) 05/11/24 Potassium 4.0 mmol/L (3.3-5.1) 05/11/24 Chloride 105 mmol/L (96-108) 05/11/24 Carbon Dioxide 27 mmol/L (22-29) 05/11/24 BUN 16 mg/dL (9-16) 05/11/24 Creatinine 0.84 mg/dL (0.5-1.4) 05/11/24 Calcium 9.4 mg/dL (8.4-10.2) 05/11/24 Urine Protein Negative mg/dL (Neg-Trace) 11/07/23 Urine Creatinine 238.85 mg/dL 10/23/23 Protein/Creatinin Ratio 0.04 (<0.2) 10/23/23 Assessment & Plan Assessment & Plan (1) Hypertension: Code(s): I10 - Essential (primary) hypertension Category: Medical Qualifiers: Hypertension type: primary hypertension Qualified Code(s): I10 - Essential (primary) hypertension Plan Sera has hypertension for long time. She has had skin rashes from hydrochlorothiazide. She is currently on metoprolol and losartan. Her renal function normal. She does not have any proteinuria or retinopathy. She has no history of coronary artery disease, CHF, YAYA, PAD or CVA. She should be on a low-sodium diet. She should lose weight. She should monitor her blood pressure at home. I asked her to continue current dose of metoprolol and losartan. If her blood pressure control goes up, I plan to increase her losartan to 50 mg . I did not make any other medication changes today. All recent data reviewed. She wants to meet weight management in [facility]. She is going to discuss with PCP. Follow-up given. Coding Level of Care Code Est Pt Level 4 (60788) Diagnoses Primary hypertension I10 Hypertension type: primary hypertension
== END 2024-08-18 15:52 | disposition home or self-care (01) ==
PROVIDERS: PCP Internal Medicine; Visit Provider Internal Medicine Nephrology
DX: I10 Essential (primary) hypertension (principal)
CPT/HCPCS: 99214

== ENCOUNTER → 2024-08-18 15:20 | Outpatient (BNVA) | payer OTHER, SELFPAY | PROVIDERS: PCP Internal Medicine; Visit Provider Internal Medicine Nephrology ==

== ENCOUNTER 2024-12-18 09:48 | Outpatient (REF) | payer OTHER, SELFPAY ==
--- OUTSIDE RECORDS SUMMARY | 2024-12-18 10:28 | XMS_ITS | Clinical Summary ---
Author Organization [facility] Address [address] [facility] [address] [place] [address] Phone Care Team Providers Care Sustainable Design Consultant Name Role Phone Ness Strauss MD Primary Care Provider [phone]- [phone] Allergies Active Allergy Reactions Criticality Noted Date Comments Amlodipine Rash Low 02/10/2021 Amoxicillin Rash Low 02/10/2021 Lisinopril Other (see comments) 02/10/2021 Sulfa Antibiotics 04/20/2011 Sulfamethoxazole-Trimethoprim Other (see comments) 02/10/2021 Medications atorvastatin (LIPITOR) 20 MG tablet Take 1 tablet by mouth 1 (one) time each day Active escitalopram (LEXAPRO) 5 MG tablet Take 10 mg by mouth 1 (one) time each day 06/01/2021 Active metoprolol tartrate (LOPRESSOR) 50 MG tablet Take 1.5 tablets (75 mg total) by mouth in the morning and 1.5 tablets (75 mg total) in the evening. 270 tablet 3 11/27/2022 Active losartan (Cozaar) 25 MG tablet Take 1 tablet (25 mg total) by mouth 1 (one) time each day 90 tablet 3 11/27/2022 Active Active Problems Problem Noted Date Diagnosed Date Hypertension 06/29/2021 Essential hypertension 02/10/2021 Resolved Problems Problem Noted Date Diagnosed Date Resolved Date Dysuria 06/29/2021 05/10/2022 Family History Medical History Relation Comments Cancer Mother Breast Cancer Diabetes Mother Hypertension Mother Hypertension Sibling Relation Status Comments Father Mother Alive Sibling Social History Tobacco Use Types Packs/Day Years Used Date Smoking Tobacco: Never Smokeless Tobacco: Never Alcohol Use Standard Drinks/Week Comments Yes 0 (1 standard drink = 0.6 oz pure alcohol) Alcoholic Drinks/day: Occasional social drink Comments Unknown Sex and Gender Information Value Date Recorded Sex Assigned at Not on file Legal Sex Female 5:09 PM EST Gender Identity Not on file Sexual Orientation Not on file Last Filed Vital Signs Vital Sign Reading Time Taken Comments Blood Pressure 120/80 12/31/2022 4:41 PM EST Pulse 65 12/31/2022 4:41 PM EST Temperature - - Respiratory Rate - - Oxygen Saturation 99% 05/23/2021 1:32 PM EDT Inhaled Oxygen Concentration - - Weight 72.5 kg (159 lb 12.8 oz) 05/14/2022 2:00 PM EDT Height 157.5 cm (5' 2 ) 12/22/2019 12:0 1 PM EST Body Mass Index 29.23 12/22/2019 12:01 PM EST Plan of Treatment Health Maintenance Due Date Last Done Comments Breast Cancer Screening 1975 Pneumococcal Vaccine: Pediat rics (0 to 5 Years) and At-Risk Patients (6 to 64 Years) (1 of 2 - PCV) 1979 Hepatitis B Vaccine (1 of 3 - 19+ 3-dose series) 01/08 Colorectal Cancer Screening: Annual FOBT 2022 Colorectal Cancer Screening: Colonoscopy 2022 Colorectal Cancer Screening: Sigmoidoscopy 2022 Influenza Vaccine (#1) [address] [facility] Care Teams Sustainable Design Consultant Relationship Specialty Start Date End Date Ness Strauss MD [facility] [place] [address] PCP - General 11/28/20
--- OUTSIDE RECORDS SUMMARY | 2024-12-18 10:28 | XMS_ITS | Encounter Summary ---
Author Organization [facility] Address [address] [place] [address] Phone Care Team Providers Care Feather Sawyer Name Role Phone Ness Strauss MD Primary Care Provider [phone]- [phone] Encounter Details Date Type Department Care Team (Late st Contact Info) Description 03/02/2022 Documentation Only [facility] [address] [place] [address] Tomi Glover MD Social History Tobacco Use Types Packs/Day Years [...] on file Sexual Orientation Not on file documented as of this encounter Plan of Treatment Not on file documented as of this encounter Visit Diagnoses Not on filedocumented in this encounter Care Teams Feather Sawyer Relationship Specialty Start Date End Date Ness Strauss MD [address] [place] [address] PCP - General 11/28/20 documented as of this encounter
--- OUTSIDE RECORDS SUMMARY | 2024-12-18 10:28 | XMS_ITS | Clinical Summary ---
Author Organization [facility] ity Address [address] [place] [address] Care Team Providers Care Vinyl Installer Name Role Phone Janice Strauss MD Primary Care Provider Surgical History Surgery Date Site/Laterality Comments CERVICAL BIOPSY W/ LOOP ELECTRODE EXCISION 2004 PROCEDURE: HISTORICAL CONE BIOPSY; COMMENT: Adenocarcinoma in situ of cervix Medical History Medical History Date Comments History of other specified c onditions presenting hazards to health 2004 DX:History of other speci fied conditions presenting hazards to health; COMMENT: Adenocarcinoma of cervix Hypertension DX:Hypertension Elevated cholesterol DX:Elevated cholesterol Adenocarcinoma in situ of cervix 2004 DX:Adenocarcinoma in situ of cervix; COMMENT: Ecto and endocervical margins free of disease Family History Medical History Relation Name Comments Breast cancer Maternal Grandmother a t age 83- not cause of Breast cancer Mother in 60s DCIS still ali ve Relation Name Status Comments Maternal Grandmother Mother in 60s Alive Social History Tobacco Use Types Packs/Day Years Used Date Smoking Tobacco: Never Smokeless Tobacco: Never Alcohol Use Standard Drinks/Week Comments Yes 0 (1 standard drink = 0.6 oz pur e alcohol) Sex and Gender Information Value Date Recorded Sex Assigned at Not on file Gender Identity Not on file Sexual Orientation Not on file Obstetrics History Plan of Treatment Upcoming Encounters Date Type Department Care Team (Late Contact Info) Description 06/09/2025 7:50 AM EDT Appointment Radiology Department [address] [phone] Health Maintenance Due Date Last Done Comments DTaP,Tdap,and Td Vaccines (1 - Tdap) 1992 Hepatitis B Vaccines (1 of 3 - 19+ 3-dose series) 1992 Cervical Cancer Screening: Pap Smear 1994 Colorectal Cancer Screening: Colonoscopy 10/28/2022 Depression Screening 10/28/2022 HIV Screening 10/28/2022 Hepatitis C Screening 10/28/2022 Social Influencers of Health Screening 10/28/2022 Zoster Vaccines (1 of 2) 2023 COVID-19 Vaccine ( season) 2024 Influenza Vaccine (#1) 2024 Breast Cancer Screening 06/04/2026 06/04/20 24, 06/04/2024, 05/27/2023, Additional history exists HIB Vaccines Aged Out No longer eligi ble based on patient's age to complete this topic HPV Vaccines Aged Out No longer eligi ble based on patient's age to complete this topic Hepatitis A Vaccines Aged Out No long er eligible based on patient's age to complete this topic IPV Vaccines Aged Out No longer eligi ble based on patient's age to complete this topic MMR Vaccines Aged Out No longer eligi ble based on patient's age to complete this topic Meningococcal ACWY Vaccine Aged Out N o longer eligible based on patient's age to complete this topic Pneumococcal Vaccine: Pediatrics (0 to 5 Years) and At-Risk Patients (6 to 64 Years) Aged Out No longer eligible based on patient's age to complete this topic RSV Immunization Patients Under 20 months Aged Out No longer eligible based on patient's age to complete this topic Varicella Vaccines Aged Out No longer eligible based on patient's age to complete this topic Procedures Procedure Name Priority Date/Time Associated Diagnosis Comments SCREENING MAMMOGRAPHY BI 2-VIEW BREAST INC CAD Routine 06/04/2024 7:50 AM EDT Encounter for screening mammogram for malignant neoplasm of breast from Last 3 Months or Most Recently Relevant to Health Maintenance Results * SCREENING MAMMOGRAPHY BI 2-VIEW BREAST INC CAD (06/04/2024 7:50 AM EDT) Anatomical Region Laterality Modality Radiographic Lindsay ging 05/27/2023 7:33 AM EDT Narrative 06/04/2024 9:11 AM EDT This is a summary report. The complete report is available in the patient's medical record. If you cannot access the medical record, please contact the sending organization for a detailed fax or copy. Full field digital screening 2D C views and 3D tomosynthesis mammography, reviewed with CAD and compared to previous. The breasts are composed of fatty and fibroglandular tissue. ??No suspicious mass, architectural distortion or suspicious calcifications are identified. IMPRESSION: : No mammographic evidence of malignancy. BIRADS 1-Negative; N. 5 year breast cancer risk assessment 1.8 % Lifetime breast cancer risk assessment 15.2 % Breast cancer risk category Moderate (15% - 20%) Procedure Note Irma Jurado MD - 10/12/2024 This is a summary report. The complete report is available in thepatient's medical record. If you cannot access the medical record, pleasecontact the sending organization for a detailed fax or copy. Full field digital screening 2D C views and 3D tomosynthesis mammography,reviewed with CAD and compared to previous. The breasts are composed offatty and fibroglandular tissue. No suspicious mass, architecturaldistortion or suspicious calcifications are identified. IMPRESSION: : No mammographic evidence of malignancy. BIRADS 1-Negative; N. 5 year breast cancer risk assessment 1.8 % Lifetime breast cancer risk assessment 15.2 % Breast cancer risk category Moderate (15% - 20%) Janice Strauss MD IMG XR PROCEDURES from Last 3 Months or Most Recently Relevant to Health Maintenance Care Teams Vinyl Installer Relationship Specialty Start Date End Date Janice Strauss MD [address] [place] [address] PCP - General 02/27/10
[2024-12-18 13:59] LABS: Alanine Aminotransferase 34 U/L (0-31); Aspartate Amino Transferase 34 U/L (5-31); Cholesterol 179 mg/dL (<200); HDL Cholesterol 46 mg/dL (>40); LDL Cholesterol Calculated 102 mg/dL (<100); Triglycerides 155 mg/dL (<150)
[2024-12-18 14:29] LABS: Estimated Average Glucose 126 mg/dL; Hemoglobin A1C 150.3122 umol/L; Total Hemoglobin (HGBA1C) 3545.5563 umol/L
== END 2024-12-18 09:49 | disposition home or self-care (01) ==
LOC: HO.HMGCLDS 09:48
PROVIDERS: PCP Internal Medicine; Visit Provider Internal Medicine
DX: Z00.01 Encounter for general adult medical examination with abnormal findings (principal); E78.5 Hyperlipidemia, unspecified; R73.01 Impaired fasting glucose; I10 Essential (primary) hypertension; F41.1 Generalized anxiety disorder
CPT/HCPCS: 36415; 80061; 83036; 84450; 84460

== ENCOUNTER 2024-12-22 11:38 | Outpatient (AMB) | payer OTHER, SELFPAY ==
[2024-12-22 11:47] VITALS: BP 130/80; PULSE 50; RESP 18; TEMP 36.6; O2SAT 97; BMI 31.0
--- NOTE | 2024-12-22 11:47 | MHC.PC.OV ---
Vital Signs 12/22/24 11:47 Height 5 ft 3 in Weight 175 lb BMI 31.0 BP 130/80 Blood Pressure Location Rt brachial Position Sitting Respiration 18 Pulse 50 Pulse Source Pulse Oximeter Temp 97.9 F Temp Source Oral Pulse Oximetry (%) 97 Oxygen Delivery Method Room Air Intake Visit Reasons: 6 month ffup IFG and lipids after labs Intake Note: pt is here for 6 mon Photo Graphics Librarian Required: No Accompanied by: Self / Same As Patient Allergies amlodipine Allergy (Unknown, Verified 12/27/24 18:25) rash amoxicillin [AMOXICILLIN] Allergy (Unknown, Verified 12/27/24 18:25) HIVES, rash lisinopril Allergy (Unknown, Verified 12/27/24 18:25) stomach pains Sulfa (Sulfonamide Antibiotics) [SULFA (SULFONAMIDE ANTIBIOTICS)] Allergy (Unknown, Verified 12/27/24 18:25) HIVES Medication List - Last Reconciled 12/27/24 by Janice Strauss MD atorvastatin 20 mg PO DAILY escitalopram oxalate 10 mg PO DAILY losartan 25 mg PO DAILY 90 days metoprolol tartrate 75 mg (1.5 x 50 mg) PO BID 90 days Tobacco use date assessed: 12/22/24 Dental Screening Dental Screen Date: 12/22/24 Did you have a dental visit in the last 12 months?: Yes Did you have a dental problem in the last 6 months where you did not have access to dental care?: No Was dental information given to patient?: Patient has dentist HPI 6 month ffup IFG and lipids after labs HPI Details - The patient is a 49-year-old female presenting for a six-month follow-up of her hyperlipidemia, hypertension and generalized anxiety disorder.. - Blood pressure currently stable controlled on losartan 25 mg daily and metoprolol tartrate 75 mg twice a day - Hyperlipidemia managed with atorvastatin; lifestyle and dietary influences noted, particularly with increased intake of holiday foods affecting triglycerides. -Anxiety, stable and controlled on escitalopram 10 mg daily - Prediabetes status acknowledged; current lifestyle and dietary improvements recommended for glucose control. [facility] Medical History Impaired fasting glucose Annual visit for general adult medical examination with abnormal findings Essential hypertension Generalized anxiety disorder Dyslipidemia Surgical History No pertinent past surgical history Social History Housing: House Patient Tobacco Use Status: Never used Tobacco e-Cigarette/Vaping Use: Never Used Second Hand Smoke Exposure: No service: No Current occupational status: employed Cognitive needs: No Hearing needs: No Vision needs: Yes Questionnaire PHQ-9 Over the last 2 weeks, how often have you been bothered by any of the following problems? 1. Little interest or pleasure in doing things: not at all 2. Feeling down, depressed, or hopeless: not at all 3. Trouble falling or staying asleep, or sleeping too much: not at all 4. Feeling tired or having little energy: not at all 5. Poor appetite or overeating: not at all 6. Feeling bad about yourself - or that you are a failure or have let yourself or your family down: not at all 7. Trouble concentrating on things, such as reading the newspaper or watching television: not at all 8. Moving or speaking so slowly that other people could have noticed. Or the opposite - being so fidgety or restless that you have been moving around a lot more than usual: not at all 9. Thoughts that you would be better off or of hurting yourself in some way: not at all Total score: 0 Depression Screening Interpretation: Negative Depression Screening Done: Yes 65735 - PHQ-9 Billing: Yes Source: Developed by Drs. Evan Plummer, Rhoda Xiong, Negro Winters and colleagues, with an educational dorota from [employer]. Thrive Questionnaire Date Thrive assessed: 12/22/24 I am a: Patient What is your living situation today?: I have a steady place to live Within the past 12 months, did the food you bought not last and you didn't have the money to get more?: Never true Within the past 12 months, did you worry whether your food would run out before you got money to buy more?: Never true Do you have trouble paying for medicines?: No Do you have trouble getting transportation to medical appointments?: No Do you have trouble paying your heating and electricity bill?: No Do you have trouble taking care of your child, family member or friend?: No Do you have trouble with day-to-day activities such as bathing, preparing meals, shopping, managing finances, etc.?: No Are you currently unemployed and looking for a job?: No Are you interested in more education?: No Please select the resources that you would like help with: None Currently or been in a relationship where the following occur: No concerns reported THRIVE Score: 0 AUDIT C Alcohol Use Questionnaire (AUDIT-C) 1. How often do you have a drink containing alcohol?: 2-4 times a month 2. How many drinks containing alcohol do you have on a typical day when you are drinking?: 1 or 2 3. How often do you have six or more drinks on one occasion?: Never Total Score: 2 Score Reviewed/Action Taken: Yes LIZBETH-7 AMB Questionnaire LIZBETH-7 Date LIZBETH - 7 assessed: 12/22/24 Feeling nervous, anxious, or on edge: 0 = Not at all Not being able to stop or control worryin = Not at all Worrying too much about different things: 0 = Not at all Trouble relaxin = Not at all Being so restless that it is hard to sit still: 0 = Not at all Becoming easily annoyed or irritable: 0 = Not at all Feeling afraid as if something awful might happen: 0 = Not at all Total LIZBETH-7 score (0-4 normal; 5-9 mild; 10-14 moderate; 15-21 severe): 0 Source: Developed by Drs. Evan Plummer, Rhoda Xiong, Negro Winters and colleagues, with an educational dorota from [employer]. LIZBETH-7 Assessment Billing LIZBETH-7 Assessment Tool: LIZBETH-7 Assessment 59435 Review of Systems Const Denies body aches, Denies fatigue, Denies fever(s), Denies headache(s) and Denies weakness Eyes Denies change in vision ENT Denies dizziness and Denies headache(s) Card Denies chest pain, Denies lightheadedness, Denies palpitations and Denies dyspnea Resp Denies chest congestion, Denies cough, Denies dyspnea and Denies wheezing GI Denies abdominal pain, Denies change in bowel habits and Denies heartburn Denies urinary frequency, Denies dysuria and Denies urinary urgency Musc Reports no additional complaints Skin/Breast Denies lesions and Denies rash Neuro Denies dizziness, Denies headache(s) and Denies weakness Psych Reports no additional complaints Endo Denies fatigue, Denies polydipsia, Denies polyuria and Denies palpitations Otis/Lymph Denies easy bruising Aller/Immun Denies seasonal rhinorrhea and Denies wheezing Physical exam (Primary Care) Vital Signs: Last Vital Signs Temp 97.9 F 12/22/24 11:47 Pulse 50 12/22/24 11:47 Resp 18 12/22/24 11:47 BP 130/80 12/22/24 11:47 Pulse Ox 97 12/22/24 11:47 Oxygen Delivery Method Room Air 12/22/24 11:47 BMI result Body Mass Index 31.0 Tobacco/Smoking Status: Tobacco use Status Tobacco use date assessed 12/22/24 12/22/24 11:51 Patient Tobacco Use Status Never used Tobacco 12/22/24 11:51 e-Cigarette/Vaping Use Never Used 12/22/24 11:51 PHQ-9: PHQ-9 Score PHQ-9: Total score 0 12/22/24 12:06 Depression Screening Interpretation: Negative Thrive Assessment: Date of Thrive Assessment Date Thrive assessed 12/22/24 12/22/24 11:51 Currently or been in a relationship where the following occur: No concerns reported Const General: no acute distress Orientation/consciousness: patient oriented x3 HENMT Ears: EAC's normal Mouth: oropharynx normal and moist mucous membranes Throat: Yes posterior oropharynx normal Neck Neck: Yes full ROM, Yes no lymphadenopathy and Yes supple Resp Effort & Inspection: normal respiratory effort and able to speak in complete sentences Auscultation: clear to auscultation bilaterally Cardio Rate: regular rate Rhythm: regular rhythm Heart sounds: S1 normal heart sound present and S2 normal heart sound present GI Inspection: Yes normal to inspection Palpation (GI): Soft to palpation, Tenderness to palpation present (GI) (Lower abdominal area), no guarding, no masses and No Rebound tenderness present Auscultation: normal bowel sounds Back/Spine/Pelvis Back: No back tenderness Skin General skin exam: no rashes or lesions noted Neuro General: patient oriented x3, gait normal, tone normal, moves all extremities, Normal light touch and pain sensation and no focal motor deficits Cognition (Neuro): normal cognition Gait exam (Neuro): Normal gait present Motor exam (neuro): 5/5 motor strength present throughout Extrem General: Yes full ROM, Yes no joint enlargement and Yes normal gait Psych Appearance: grossly normal and well kempt Mental Status: mental status grossly normal Speech and movement: Normal speech and movement present Affect: normal affect Results Reviewed Results Reviewed: Name: Sera Heath Age/Sex: 49/F : 1975 Unit#: [id number] Attend Dr: Janice Strauss MD Re12/18/24 Status: DEP [facility]F [facility] Disch: SPEC : [id number] LINDA: 12/18/24 STATUS: COMP REQ : [id number] RECD: 12/18/[address]: Janice Strauss MD COMP: 12/18/24 ENTERED: 12/18/[address]: ORDERED: AST, ALT, Lipid Panel Test Result Flag Reference AST (GOT) 34 H 5-31 U/L ALT (GPT) 34 H 0-31 U/L Triglyceride 155 H <150 mg/dL Desirable Triglyceride: less than 150 mg/dL Borderline High Triglyceride 150-199 mg/dL High Triglyceride: 200-499 mg/dL Very High Triglyceride: greater than or equal to 5OO mg/dL Cholesterol 179 <200 mg/dL Desirable Cholesterol: less than 200 mg/dL Borderline High Cholesterol: 200-239 mg/dL High Cholesterol: greater than 239 mg/dL LDL Calculated 102 H <100 mg/dL Desirable LDL: less than 100 mg/dL Near Optimal/Above Optimal LDL: 110-129 mg/dL Borderline High LDL: 130-159 mg/dL High LDL: 160-189 mg/dL Very High LDL: greater than or equal to 190 mg/dL HDL 46 >40 mg/dL Desirable HDL: greater than 40 mg/dL Note: This HDL assay may give artificially low results in patients with liver disease. Coding Level of Care Code Est Pt Level 4 (46377) Complex EM visit Add On G2211 Diagnoses Dyslipidemia E78.5 Generalized anxiety disorder F41.1 Essential hypertension I10 Impaired fasting glucose R73.01 Additional Codes LIZBETH-7 Assessment Billing - LIZBETH-7 Assessment Tool: LIZBETH-7 Assessment 56125 ([id number]) PHQ-9 - 87674 - PHQ-9 Billing: Yes ([id number]) Assessment & Plan Assessment & Plan (1) Dyslipidemia: Code(s): E78.5 - Hyperlipidemia, unspecified Category: Medical Plan: Reviewed recent fasting lipid result with patient which showed results within normal limits. Continued on atorvastatin 20 mg daily (2) Generalized anxiety disorder: Code(s): F41.1 - Generalized anxiety disorder Category: Medical Plan: Continue citalopram 10 mg once a day (3) Essential hypertension: Code(s): I10 - Essential (primary) hypertension Category: Medical Plan: Blood pressure stable and controlled on losartan 25 mg daily and metoprolol tartrate 75 mg twice a day. (4) Impaired fasting glucose: Code(s): R73.01 - Impaired fasting glucose Category: Medical Plan: Your previous fasting blood sugars were elevated above 100 mg/dL. Impaired glucose metabolism increases the risk for developing diabetes mellitus type 2, as well as heart attack and stroke later on. Lifestyle changes that promotes weight loss, healthy eating habits, and regular exercise are important, and can prevent the progression to diabetes Orders: Orders Aspartate Amino Transferase 05/18/25 E78.5 - Hyperlipidemia, unspecified, F41.1 - Generalized anxiety disorder, I10 - Essential (primary) hypertension, R73.01 - Impaired fasting glucose Alanine Aminotransferase 05/18/25 E78.5 - Hyperlipidemia, unspecified, F41.1 - Generalized anxiety disorder, I10 - Essential (primary) hypertension, R73.01 - Impaired fasting glucose Lipid Panel 05/18/25 E78.5 - Hyperlipidemia, unspecified, F41.1 - Generalized anxiety disorder, I10 - Essential (primary) hypertension, R73.01 - Impaired fasting glucose Basic Metabolic Panel Fasting 05/18/25 E78.5 - Hyperlipidemia, unspecified, F41.1 - Generalized anxiety disorder, I10 - Essential (primary) hypertension, R73.01 - Impaired fasting glucose Hemoglobin A1c 05/18/25 R73.01 - Impaired fasting glucose Medications: Refilled escitalopram oxalate 10 mg PO DAILY 90 tabs 3RF F41.1 - Generalized anxiety disorder atorvastatin 20 mg PO DAILY 90 tabs 3RF E78.5 - Hyperlipidemia, unspecified
--- OUTSIDE RECORDS SUMMARY | 2024-12-22 12:37 | XMS_ITS | Clinical Summary ---
Author Organization [facility] Address [address] [place] [address] Phone Care Team Providers Care Manufacturing Design Engineer Name Role Phone Ness Strauss MD Primary Care Provider [phone]- [phone] Allergies Active Allergy Reactions Criticality Noted Date [...] Sigmoidoscopy 2022 Influenza Vaccine (#1) 2024 Insurance [facility] Care Teams Manufacturing Design Engineer Relationship Specialty Start Date End Date Ness Strauss MD [place] [address] PCP - General 11/28/20
--- OUTSIDE RECORDS SUMMARY | 2024-12-22 12:37 | XMS_ITS | Clinical Summary ---
Author Organization [facility] ity Address [address] [place] [address] Care Team Providers Care Svp Programmatic Tv Name Role Phone Janice Strauss MD Primary [...] Encounters Date Type Department Care Team (Late st Contact Info) Description 06/09/2025 7:50 AM EDT Appointment Radiology Department [address] [phone] Health Maintenance Due Date Last Done Comments [...] Recently Relevant to Health Maintenance Care Teams Svp Programmatic Tv Relationship Specialty Start Date End Date Janice Strauss MD [address] [place] [address] PCP - General 02/27/10
--- OUTSIDE RECORDS SUMMARY | 2024-12-22 12:37 | XMS_ITS | Encounter Summary ---
Author Organization [facility] Address [address] [place] [address] Phone Care Team Providers Care Wheel Setter Name Role Phone Ness Strauss MD Primary Care Provider [phone]- [phone] Encounter Details Date Type Department Care Team (Late st Contact Info) Description 03/02/2022 Documentation Only [facility] [address] [place] [address] Tomi Glover MD Social History [...] on filedocumented in this encounter Care Teams Wheel Setter Relationship Specialty Start Date End Date Ness Strauss MD [address] [place] [address] PCP - General 11/28/20 documented as of this encounter
== END 2024-12-22 12:30 | disposition home or self-care (01) ==
PROVIDERS: PCP Internal Medicine; Visit Provider Internal Medicine
DX: E78.5 Hyperlipidemia, unspecified (principal); F41.1 Generalized anxiety disorder; I10 Essential (primary) hypertension; R73.01 Impaired fasting glucose

== ENCOUNTER → 2024-12-22 11:38 | Outpatient (BNVA) | payer OTHER, SELFPAY | PROVIDERS: PCP Internal Medicine; Visit Provider Internal Medicine | DX: E78.5 Hyperlipidemia, unspecified (principal); F41.1 Generalized anxiety disorder; I10 Essential (primary) hypertension; R73.01 Impaired fasting glucose; Z79.899 Other long term (current) drug therapy | CPT/HCPCS: 96127 ==

== ENCOUNTER 2025-03-16 10:39 | Outpatient (REF) | payer OTHER, SELFPAY ==
--- OUTSIDE RECORDS SUMMARY | 2025-03-16 12:16 | XMS_ITS ---
Author Organization [facility] [employer] [facility] Address [address] [address] Care Team Providers Care Returns Processor Name Role Phone KADI KENDRICK Unavailable [phone] REASON FOR VISIT Annual MORTGAGE LENDER Physical Encounters Encounter Location Date Provider Diagnosis [facility] [address] 01/19/2025 KADI KENDRICK Encounter for gynecological examination [...] Follow Up: 1 Year, Reason: Y early Representative Phlebotomy Services Exam Provider Name:KADI PERERAKIA Macias, 03/22/2025 10:00:00 AM, [address] [place] [address], [address], [place], [address], Progress Notes * ZHANE AGUIRREOB:1975 ([age] yo F)Acc No.[id number]:01/19/2025 Progress Note Patient:?SERA AGUIRRE Provider:?KADI KENDRICK MD :1975???Age:50 Y???Sex:Female D ate:01/19/2025 Address:[address] [place], [place] [id number] Subjective: * Chief Complaints: * ???1. Annual MORTGAGE LENDER Physical. * HPI: ???Constitutional:? 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 She is new to this practice, having received previous elevator installer care . She has been in state [...] She exercises x days/week by . * ROS:?Annual Representative Phlebotomy Services Exam ROS:?Bowel habit changes?denies.?Bladder symptoms?denies.?Vaginal discharge, unusual?denies.?Vaginal itch or odor?denies.?weight or appetite changes?denies.?Chest pains, SOB?denies.?depression?denies.?Breast:?Denies?Breast lump.?Denies?Nipple discharge.?Hematology:?Denies?Swollen glands.?Skin:?Patient denies?changing moles.?Psychiatric:?Denies?Anxiety.? * Medical History:? Objective: * Vitals:? * Examination: ???General Examination: ?GENERAL APPEARANCE:?in no acute distress, well developed, well nourished, family assessment worker present in room.?HEAD:?normocephalic, atraumatic.?NECK/THYROID:?neck supple, full range of motion, thyroid normal.?LYMPH NODES:?no axillary or supraclavicular adenopathy.?SKIN:? normal, good turgor, no rashes, no suspicious lesions.?BREASTS:? normal, no dimpling, no discharge, no drainage, no masses palpable bilaterally, nontender.?ABDOMEN:? soft, non-tender, non distended without masses or hepatosplenomegay.?RECTAL:? normal tone, no masses palpable.?BACK:? no costovertebral angle tenderness.?FEMALE GENITOURINARY:?Vulva without lesions or masses, vagina pink without abnormal discharge, lesions or masses, cervix appears normal and is not tender to palpation, uterus is normal size, mobile, nontender and anteverted, ovaries are not palpable.?NEUROLOGIC:? alert and oriented, gait normal.?PSYCH:? alert, oriented, cognitive function intact, cooperative with exam, good eye contact, mood/affect full range, speech clear.? Assessment: * Assessment: 1.?Encounter for gynecologic al examination (general) (routine) without abnormal findings - Z01.419 (Primary)???2.?Encounter for screening mammogram for malignant neoplasm of breast - Z12.31???3.?Encounter for screening for infections with a predominantly sexual mode of transmission - Z11.3??? Plan: * Treatment: 2.?Encounter for screening m ammogram for malignant neoplasm of breast?Imaging: MM Digital Screening Mammogram 3D * Follow Up:?1 Year (Reason: Y early Representative Phlebotomy Services Exam) * Images: Billing Information: * Visit Code:? 65508 Preventive Care New Pt. Age 40-64. * Procedure Codes:? 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 She is new to this practice, having received previous elevator installer care . She has been in state [...] ac brenda distress, well developed, well nourished, family assessment worker present in room HEAD: normocephalic, atrau matic [...]
--- OUTSIDE RECORDS SUMMARY | 2025-03-16 12:16 | XMS_ITS | Clinical Summary ---
Author Organization [facility] it Address [address] [place] [address] Care Team Providers Care Studio Control Operator Name Role Phone Janice Strauss MD Primary [...] drink = 0.6 oz pur e alcohol) Comments Unknown Sex and Gender Information Value Date Recorded Sex Assigned at Not on file Legal Sex Female 3:40 PM EST Gender Identity Not on file Sexual Orientation Not on file Obstetrics History Plan of Treatment Upcoming Encounters Date Type Department Care Team (Late st Contact Info) Description 06/09/2025 7:50 AM EDT Appointment Radiology Department - [address] [address] Health Maintenance Due Date Last Done Comments DTaP,Tdap,and Td Vaccines (1 - Tdap) 1992 Hepatitis B Vaccines (1 of 3 - 19+ 3-dose series) 1992 Cervical Cancer Screening: Pap Smear 1994 Colorectal Cancer Screening: Colonoscopy 10/28/2022 Depression Screening 10/28/2022 HIV Screening 10/28/2022 Hepatitis C Screening 10/28/2022 Social Influencers of Health Screening 10/28/2022 Pneumococcal Vaccine: 50+ Years (1 of 1 - PCV) 2023 Zoster Vaccines (1 of 2) 2023 COVID-19 Vaccine ( - season) 2024 Influenza Vaccine (Season Ended) 2025 Breast Cancer Screening 06/04/2026 06/04/20 24, 06/04/2024, [...] patient's age to complete this topic Meningococcal B Vaccine Aged Out No l onger eligible based on patient's age to complete [...] 20%) Janice Strauss MD IMG XR PROCEDURES Final Res ult from Last 3 Months or Most Recently Relevant to Health Maintenance Care Teams Studio Control Operator Relationship Specialty Start Date End Date Janice Strauss MD [address] [place] [address] PCP - General 02/27/10
--- OUTSIDE RECORDS SUMMARY | 2025-03-16 12:16 | XMS_ITS | Clinical Summary ---
Author Organization [facility] Address [address] [facility] [address] [place] [address] Phone Care Team Providers Care Eyeglass Maker Name Role Phone Ness Strauss MD Primary Care Provider +1- [phone] Allergies Active Allergy Reactions Criticality Noted Date [...] Last Done Comments Breast Cancer Screening 1973 Hepatitis B Vaccine (1 of 3 - 19+ 3-dose series) 01/08 Pneumococcal Vaccine: 50+ Years (1 of 2 - PCV) 992 Colorectal Cancer Screening: Annual FOBT 2022 Colorectal Cancer Screening: Colonoscopy 2022 Colorectal Cancer Screening: Sigmoidoscopy 2022 Influenza Vaccine (Season Ended) [address] [place] [address] [facility] Care Teams Eyeglass Maker Relationship Specialty Start Date End Date Ness Strauss MD [address] [facility] [place] [place] [address] PCP - General 11/28/20
--- OUTSIDE RECORDS SUMMARY | 2025-03-16 12:16 | XMS_ITS | Encounter Summary ---
Author Organization [facility] Address [address] [place] [address] Phone Care Team Providers Care Caseworker Protective Services Name Role Phone Ness Strauss MD Primary Care Provider +1- [phone] Encounter Details Date Type Department Care Team (Late st Contact Info) Description 03/02/2022 Documentation Only [facility] [address] [place] [address] Tomi Glover MD Social History [...] on filedocumented in this encounter Care Teams Caseworker Protective Services Relationship Specialty Start Date End Date Ness Strauss MD [address] [place] [address] PCP - General 11/28/20 documented as of this encounter
--- OUTSIDE RECORDS SUMMARY | 2025-03-16 12:16 | XMS_ITS ---
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 Encounters Encounter Location Date Provider Diagnosis [facility] [address] [place] [address] 02/26/2025 KADI KENDRICK Plan Of Treatment Next Appt Details Provider Name:KADIMartha Macias, 03/22/2025 10:00:00 AM, [address] [place] [address], [facility] [address], [place], [address], Progress Notes * ZHANE AGUIRREOB:1975 (3 2 yo F)Acc No.[id number]:02/26/2025 Progress Note Patient:?CARLA PRIYANK Provider:?KADI KENDRICK MD :1975???Age:50 Y???Sex:Female D ate:02/26/2025 Address:[address] [place], [place] [id number] Subjective: * Chief Complaints: * ???1. 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 * Medical History:? Objective: * Vitals:? Assessment: Plan: * Treatment: * Images: Billing Information: * Visit Code:? * Procedure Codes:? * Electronic signature of KADI KENDRICK MD on 03/16/2025 at 12:16 PM EDT Sign off status: Pending * Provider:?KADI KENDRICK MD Date:?2024 Generated for Printi ng/Faseverinog/eTransmitting on:?03/16/2025 12:16 PM EDT
--- OUTSIDE RECORDS SUMMARY | 2025-03-16 12:16 | XMS_ITS | Patient Health Record ---
Author Organization [facility] Address [address] [place] [address] [address] [place] [address] Care Team Providers Care Commercial Manager Name Role Phone KADI KENDRICK Unavailable [phone] Reason For Referral No Information Plan Of Treatment Next Appt Details Provider Name:KADI Macias, 03/22/2025 10:00:00 AM, [address] [place] [address], [address], [place], [address], Insurance Providers Payer Name Payer Address Payer Phone Subscriber Number Group Number Insured Name Patient Relationship to Insured Coverage Start Date Coverage End Date [employer] [address] [place] [address] PRIYANK AGUIRRE Self - patient is the insured
== END 2025-03-16 10:40 | disposition home or self-care (01) ==
LOC: HO.HMGCLDS 10:39
PROVIDERS: PCP Internal Medicine; Visit Provider Internal Medicine Nephrology
DX: R30.0 Dysuria (principal)
CPT/HCPCS: 87086

== ENCOUNTER 2025-03-18 15:51 | Outpatient (AMB) | payer OTHER, SELFPAY ==
--- NOTE | 2025-03-18 15:59 | HO.NEPHOV_ITS ---
Vital Signs 03/18/25 16:00 Height 5 ft 3 in Weight 173 lb 8 oz BMI 30.7 BP 164/86 H Blood Pressure Location Rt brachial Position Sitting Intake Visit Reasons: 6 mon follow up-Conf Attendant [facility] Required: No Accompanied by: Sister Allergies amlodipine Allergy (Unknown, Verified 03/18/25 16:00) rash amoxicillin [AMOXICILLIN] Allergy (Unknown, Verified 03/18/25 16:00) HIVES, rash lisinopril Allergy (Unknown, Verified 03/18/25 16:00) stomach pains Sulfa (Sulfonamide Antibiotics) [SULFA (SULFONAMIDE ANTIBIOTICS)] Allergy (Unknown, Verified 03/18/25 16:00) HIVES HPI Comments Details: Sera was seen in follow-up of her hypertension. She does not have any headache, visual disturbances, chest pain, shortness of breath, proximal nocturnal dyspnea, orthopnea, pedal edema or any urinary symptoms. She is compliant with her medications. She has no history of retinopathy, LVH, or proteinuria. She is compliant with her medications. She is on metoprolol and losartan. She is not very rigid with low-sodium diet. She had urinary symptoms and underwent urine culture which was negative. She feels well otherwise. Her renal functions are normal. [facility] Medical History Impaired fasting glucose Annual visit for general adult medical examination with abnormal findings Essential hypertension Generalized anxiety disorder Dyslipidemia Surgical History No pertinent past surgical history Social History Housing: House Patient Tobacco Use Status: Never used Tobacco e-Cigarette/Vaping Use: Never Used Second Hand Smoke Exposure: No service: No Current occupational status: employed Cognitive needs: No Hearing needs: No Vision needs: Yes Review of Systems Const All systems reviewed & are unremarkable except as noted in HPI and below Physical Exam Const General: comfortable and no acute distress Orientation/consciousness: patient oriented x3 HEENT Head: Yes normocephalic Mouth: Normal oral and palatal mucosa present Eyes EOM: EOMs intact bilaterally Neck Neck: Yes supple Resp Auscultation: clear to auscultation bilaterally Cardio Jugular venous distension: no JVD Rate: regular rate GI Palpation (GI): Soft to palpation Auscultation: normal bowel sounds General: Yes no CVA tenderness Back/Spine/Pelvis Back: no CVA tenderness Skin General skin exam: no rashes or lesions noted Neuro General: patient oriented x3 and moves all extremities Extrem General: Yes no pedal edema Results Reviewed Nephrology Results: Sodium 143 mmol/L (135-145) 05/11/24 Potassium 4.0 mmol/L (3.3-5.1) 05/11/24 Chloride 105 mmol/L (96-108) 05/11/24 Carbon Dioxide 27 mmol/L (22-29) 05/11/24 BUN 16 mg/dL (9-16) 05/11/24 Creatinine 0.84 mg/dL (0.5-1.4) 05/11/24 Calcium 9.4 mg/dL (8.4-10.2) 05/11/24 Urine Protein Negative mg/dL (Neg-Trace) 11/07/23 Assessment & Plan Assessment & Plan (1) Hypertension: Code(s): I10 - Essential (primary) hypertension Category: Medical Qualifiers: Hypertension type: primary hypertension Qualified Code(s): I10 - Essential (primary) hypertension Plan Sera has hypertension for long time. She has had skin rashes from hydrochlorothiazide. She is currently on metoprolol and losartan. Her renal function normal. She does not have any proteinuria or retinopathy. She has no history of coronary artery disease, CHF, YAYA, PAD or CVA. She should be on a low-sodium diet. She should lose weight. She should monitor her blood pressure at home. I asked her to continue current dose of metoprolol and losartan. I increased her losartan to 50 mg . I did not make any other medication changes today. All recent data reviewed. She wants to meet weight management in [facility]. She is going to discuss with PCP. Follow-up given. Coding Level of Care Code Est Pt Level 4 (38920) Diagnoses Primary hypertension I10 Hypertension type: primary hypertension
[2025-03-18 16:00] VITALS: BP 164/86; BMI 30.7
--- OUTSIDE RECORDS SUMMARY | 2025-03-18 17:25 | XMS_ITS ---
Author Organization [facility] [employer] 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Sex:Female D ate:01/19/2025 Address:[address] [place], [place] [id number] Subjective: * Chief Complaints: * ???1. 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 * HPI: ???Constitutional:? Sera is a 49yo GxPx with LMP x/x/x who presents for her yearly lab rn exam. She is new to this practice, having received previous lab rn care . She has been in state [...] exercises x days/week by . 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 * Medical History:? Objective: * Vitals:? * Examination: ???General Examination: ?GENERAL APPEARANCE:?in no acute distress, well developed, well nourished, jacquard loom carpet weaver present in room.?HEAD:?normocephalic, atraumatic.?NECK/THYROID:?neck supple, full range [...] * Follow Up:?1 Year (Reason: Y early Brasswind Instrument Repairer Exam) * Images: Billing Information: * Visit Code:? 14263 Preventive Care New Pt. Age 40-64. * Procedure Codes:? * Electronic signature of KADI KENDRICK MD on 03/18/2025 at 05:25 PM EDT Sign off status: Pending * Provider:?KADI KENDRICK MD Date:?2024 Generated for Oliva ellington/Hermann/eTransmitting on:?03/18/2025 05:25 PM EDT History and Physical Notes * HPI (History of Present Illness) Category Sub-Category Detail Notes Category Not es Constitutional Sera is a 49yo GxPx with LMP x/x/x who presents for her yearly lab rn exam. She is new to this practice, having received previous lab rn care . She has been in state [...] ac brenda distress, well developed, well nourished, jacquard loom carpet weaver present in room HEAD: normocephalic, atrau matic [...]
--- OUTSIDE RECORDS SUMMARY | 2025-03-18 17:25 | XMS_ITS ---
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 Encounters Encounter Location Date Provider Diagnosis [facility] [address] [place] [address] 02/26/2025 KADI KENDRICK Plan Of Treatment Next Appt Details Provider Name:KADIMartha Macias, 03/22/2025 10:00:00 AM, [address] [place] [address], [facility] [address], [place], [address], Progress Notes * CARLAREBECCARJOB:1975 ([age] yo F)Acc No.[id number]:02/26/2025 Progress Note Patient:?CARLAREBECCAHY Provider:?KADI KENDRICK MD :1975???Age:50 Y???Sex:Female D ate:02/26/2025 Address:[address] [place], [place] [id number] Subjective: * Chief Complaints: * ???1. 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 * Medical History:? Objective: * Vitals:? Assessment: Plan: * Treatment: * Images: Billing Information: * Visit Code:? * Procedure Codes:? * Electronic signature of KADI KENDRICK MD on 03/18/2025 at 05:25 PM EDT Sign off status: Pending * Provider:?KADI KENDRICK MD Date:?2024 Generated for Emilyi ng/Faseverinog/eTransmitting on:?03/18/2025 05:25 PM EDT
--- OUTSIDE RECORDS SUMMARY | 2025-03-18 17:25 | XMS_ITS | Patient Health Record ---
Author Organization [facility] Address [address] [place] [address] [address] [place] [address] Care Team Providers Care Stainless Steel Finisher Name Role Phone KADI KENDRICK Unavailable [phone] Reason For Referral No Information Plan Of Treatment Next Appt Details Provider Name:KADI Macias, 03/22/2025 10:00:00 AM, [address] [place] [address], [address], [place], [address], Insurance Providers Payer Name Payer Address Payer Phone Subscriber Number Group Number Insured Name Patient Relationship to Insured Coverage Start Date Coverage End Date DIV[employer]IED ADMINISTRATION [address] [place] [address] PRIYANK AGUIRRE Self - patient is the insured
--- OUTSIDE RECORDS SUMMARY | 2025-03-18 17:25 | XMS_ITS | Encounter Summary ---
Author Organization [facility] Address [address] [place] [address] Phone Care Team Providers Care Side Laster Staple Name Role Phone Ness Strauss MD Primary Care Provider +1- [phone] Encounter Details Date Type Department Care Team (Late st Contact Info) Description 03/02/2022 Documentation Only [facility] [address] [place] [address] Tomi Glover MD Social History [...] on filedocumented in this encounter Care Teams Side Laster Staple Relationship Specialty Start Date End Date Ness Strauss MD [address] [place] [address] PCP - General 11/28/20 documented as of this encounter
--- OUTSIDE RECORDS SUMMARY | 2025-03-18 17:25 | XMS_ITS | Clinical Summary ---
Author Organization [facility] Address [address] [facility] [address] [place] [address] Phone Care Team Providers Care Network Management Specialist Name Role Phone Ness Strauss MD Primary Care Provider +1- [phone] Allergies Active Allergy Reactions Criticality Noted Date [...] 2022 Influenza Vaccine (Season Ended) [address] [place] [address] [facility] Care Teams Network Management Specialist Relationship Specialty Start Date End Date Ness Strauss MD [address] [facility] [place] [address] PCP - General 11/28/20
--- OUTSIDE RECORDS SUMMARY | 2025-03-18 17:25 | XMS_ITS | Clinical Summary ---
Author Organization [facility] it Address [address] [place] [address] Care Team Providers Care Water Treatment Technician Name Role Phone Janice Strauss MD Primary [...] 06/09/2025 7:50 AM EDT Appointment Radiology Department [address] [address] Health Maintenance Due Date Last Done Comments [...] Recently Relevant to Health Maintenance Care Teams Water Treatment Technician Relationship Specialty Start Date End Date Janice Strauss MD [address] [place] [address] PCP - General 02/27/10
== END 2025-03-18 16:25 | disposition home or self-care (01) ==
LOC: HO.HKAS 15:52
PROVIDERS: PCP Internal Medicine; Visit Provider Internal Medicine Nephrology
DX: I10 Essential (primary) hypertension (principal)
CPT/HCPCS: 99214

== ENCOUNTER → 2025-03-18 15:51 | Outpatient (BNVA) | payer OTHER, SELFPAY | PROVIDERS: PCP Internal Medicine; Visit Provider Internal Medicine Nephrology | DX: I10 Essential (primary) hypertension (principal) ==

== ENCOUNTER 2025-08-31 15:36 | Outpatient (AMB) | payer OTHER, SELFPAY ==
--- OUTSIDE RECORDS SUMMARY | 2025-01-19 10:00 | XMS_ITS ---
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 Encounters Encounter Location Date Provider Diagnosis [facility] [employer] [address] [address] 01/19/2025 KADI KENDRICK Encounter for gynecological examination (general) (routine) without abnormal findings Z01.419 ; Encounter for screening mammogram for malignant neoplasm of breast Z12.31 and Encounter for screening for infections with a predominantly sexual mode of transmission Z11.3 Assessments Encounter Date Diagnosis (ICD Code) Assessment Notes Treatment Notes Treatment Clinical Notes Section Notes 01/19/2025 Encounter for gynecological examination (general) (routine) without abnormal findings (ICD-10 - Z01.419) During the visit, the following areas of concern were addressed: Discussed cervical cancer screening with either cytology alone every 3 years or high risk HPV co-testing every 5 years as per ASCCP guidelines. Advised continued annual pelvic exams. Patient encouraged to increase her level of exercise. SBE technique encouraged/tau ght. Patient reminded when annual mammogram is due. Patient encouraged to keep colon screening up to date. 01/19/2025 Encounter for screening mammogram for malignant neoplasm of breast (ICD-10 - Z12.31) 01/19/2025 Encounter for screening for infections with a predominantly sexual mode of transmission (ICD-10 - Z11.3) Plan Of Treatment Treatment Notes Assessment Notes Encounter for gynecological examination (general) (routine) without abnormal findings During the visit, the following areas of concern were addressed: Discussed cervical cancer screening with either cytology alone every 3 years or high risk HPV co-testing every 5 years as per ASCCP guidelines. Advised continued annual pelvic exams. Patient encouraged to increase her level of exercise. SBE technique encouraged/taught. Patient reminded when annual mammogram is due. Patient encouraged to keep colon screening up to date. Pending Test Test Name Order Date MM Digital Screening Mammogram 3D 2024 Next Appt Details Follow Up: 1 Year, Reason: Y early Architectural Inspector Exam Provider Name:KADI Park RODERICK Macias, 03/28/2026 11:00:00 AM, [address] [place] [address], [address], [place], [address], Progress Notes * ZHANE AGUIRREOB:1975 (3 2 yo F)Acc No.[id number]:01/19/2025 Progress Note Patient: SERA ROSAS Provider: Xavier KENDRICK MD :1975 A ge:50 Y S ex:Female Date:01/19/2025 Address:[address] [place], [place] [id number] Pcp:ELIDA ANDERSON MD Subjective: * Chief Complaints: * 1 . 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 She is new to this practice, having received previous crystal finisher care . She has been in state of health since her last exam. She has the following concerns:. She has received the Covid-19 vaccine. Relationship status: for years. She is sexually active. Sexual partner(s): male. She does wish to have STI testing. Menses: Contraception: She does report vaginal dryness. She does have hot flashes/night sweats. The patient has had an abnormal pap smear within the last 5 years. Her most recent pap smear was 10/08/23 - NIL, neg HR HPV. Previous pap was 04/23/22 - NIL, neg HR HPV. She has been diagnosed with breast cancer. She does have a family history of breast cancer. Her last mammogram was . She does have a family history of colon cancer. She a has had a colonoscopy. The last colonoscopy was . The patient does exercise. She exercises x days/week by . * ROS: A nnual Architectural Inspector Exam ROS: Bowel habit changes d enies. B ladder symptoms d enies. V aginal discharge, unusual d enies. V aginal itch or odor d enies. w eight or appetite changes d enies. C hest pains, SOB d enies. d epression d enies.? B reast: Denies B reast lump. D enies N ipple discharge.? H ematology: Denies S wollen glands. S kin: Patient denies c hanging moles. P sychiatric: Denies A nxiety. * Medical History: Objective: * Vitals: * Examination: G eneral Examination: GENERAL APPEARANCE: i n no acute distress, well developed, well nourished, steam heating installer present in room. HEAD: n ormocephalic, atraumatic. NECK/THYROID: n fan supple, full range of motion, thyroid normal. LYMPH NODES: n o axillary or supraclavicular adenopathy.? SKIN: normal, good turgor, no rashes, no suspicious lesions. BREASTS: normal, no dimpling, no discharge, no drainage, no masses palpable bilaterally, nontender. ABDOMEN: soft, non-tender, non distended without masses or hepatosplenomegay. RECTAL: normal tone, no masses palpable. BACK: no costovertebral angle tenderness. FEMALE GENITOURINARY: V ulva without lesions or masses, vagina pink without abnormal discharge, lesions or masses, cervix appears normal and is not tender to palpation, uterus is normal size, mobile, nontender and anteverted, ovaries are not palpable. NEUROLOGIC: alert and oriented, gait normal. PSYCH: alert, oriented, cognitive function intact, cooperative with exam, good eye contact, mood/affect full range, speech clear. Assessment: * Assessment: 1. E ncounter for gynecological examination (general) (routine) without abnormal findings - Z01.419 (Primary) 2 . E ncounter for screening mammogram for malignant neoplasm of breast - Z12.31 3 . E ncounter for screening for infections with a predominantly sexual mode of transmission - Z11.3 Plan: * Treatment: 2. E ncounter for screening mammogram for malignant neoplasm of breast I maging: MM Digital Screening Mammogram 3D * Follow Up: 1 Year (Reason: Yearly Architectural Inspector Exam) * Images: Billing Information: * Visit Code: 92519 Preventive Care New Pt. Age 40-64. 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 She is new to this practice, having received previous crystal finisher care . She has been in state of health since her last exam. She has the following concerns:. She has received the Covid-19 vaccine. Relationship status: for years. She is sexually active. Sexual partner(s): male. She does wish to have STI testing. Menses: Contraception: She does report vaginal dryness. She does have hot flashes/night sweats. The patient has had an abnormal pap smear within the last 5 years. Her most recent pap smear was 10/08/23 - NIL, neg HR HPV. Previous pap was 04/23/22 - NIL, neg HR HPV. She has been diagnosed with breast cancer. She does have a family history of breast cancer. Her last mammogram was . She does have a family history of colon cancer. She a has had a colonoscopy. The last colonoscopy was . The patient does exercise. She exercises x days/week by . Examination Category Sub-Category Detail Notes Category Not es General Examination GENERAL APPEARANCE: in no ac brenda distress, well developed, well nourished, steam heating installer present in room HEAD: normocephalic, atrau matic NECK/THYROID: neck supple, full ra nge of motion, thyroid normal ABDOMEN: soft, non-tender, no n distended without masses or hepatosplenomegay NEUROLOGIC: alert and oriented, gait normal SKIN: normal, good turgor, no rashes, no suspicious lesions BACK: no costovertebral an gle tenderness BREASTS: normal, no dimpling, no discharge, no drainage, no masses palpable bilaterally, nontender LYMPH NODES: no axillary or supra clavicular adenopathy RECTAL: normal tone, no mass es palpable PSYCH: alert, oriented, cog nitive function intact, cooperative with exam, good eye contact, mood/affect full range, speech clear FEMALE GENITOURINARY: Vulva without lesi ons or masses, vagina pink without abnormal discharge, lesions or masses, cervix appears normal and is not tender to palpation, uterus is normal size, mobile, nontender and anteverted, ovaries are not palpable
--- OUTSIDE RECORDS SUMMARY | 2025-02-26 10:00 | XMS_ITS ---
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 Encounters Encounter Location Date Provider Diagnosis [facility] [address] [place] [address] 02/26/2025 KADI KENDRICK Plan Of Treatment Next Appt Details Provider Name:KADI Macias, 03/28/2026 11:00:00 AM, [address] [place] [address], [facility] [address], [place], [address], Progress Notes * ZHANE AGUIRREOB:1975 (3 2 yo F)Acc No.[id number]:02/26/2025 Progress Note Patient: PRIYANK ROSAS Provider: Xavier KENDRICK MD :1975 A ge:50 Y S ex:Female Date:02/26/2025 Address:[address] [place], [place] [address] Pcp:ELIDA ANDERSON MD Subjective: * Chief Complaints: * 1 . 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 * Medical History: Objective: * Vitals: Assessment: Plan: * Treatment: * Images: Billing Information: * Visit Code: * Procedure Codes: * Electronic signature of KADI KENDRICK MD on 08/31/2025 at 06:19 PM EDT Sign off status: Pending * Provider: Xavier KENDRICK MD Date: 0 02/26/2025 Generated for Oliva ellington/Hermann/Alexey on: 1 06:19 PM EDT
--- NOTE | 2025-08-31 15:45 | HO.NEPHOV_ITS ---
Vital Signs 08/31/25 15:48 08/31/25 15:49 Height 5 ft 3 in Weight 179 lb 6 oz BMI 31.8 BP 130/80 Blood Pressure Location Lt brachial Position Sitting Pulse 51 Pulse Source Pulse Oximeter Pulse Oximetry (%) 98 Oxygen Delivery Method Room Air Intake Visit Reasons: Rscng 08/19 appt Slitter And Rewinder Required: No Accompanied by: Self / Same As Patient Allergies amlodipine Allergy (Unknown, Verified 08/31/25 15:47) rash amoxicillin (AMOXICILLIN) Allergy (Unknown, Verified 08/31/25 15:47) HIVES, rash lisinopril Allergy (Unknown, Verified 08/31/25 15:47) stomach pains Sulfa (Sulfonamide Antibiotics) (SULFA (SULFONAMIDE ANTIBIOTICS)) Allergy (Unknown, Verified 08/31/25 15:47) HIVES HPI Comments Details: Sera was seen in follow-up of her hypertension. She does not have any headache, visual disturbances, chest pain, shortness of breath, proximal nocturnal dyspnea, orthopnea, pedal edema or any urinary symptoms. She is compliant with her medications. She has no history of retinopathy, LVH, or proteinuria. She is compliant with her medications. She is on metoprolol and losartan. She is not very rigid with low-sodium diet. She has not lost any significant weight. She feels well otherwise. Her renal functions are normal. [facility] Medical History Impaired fasting glucose Annual visit for general adult medical examination with abnormal findings Essential hypertension Generalized anxiety disorder Dyslipidemia Surgical History No pertinent past surgical history Social History Housing: House Patient Tobacco Use Status: Never used Tobacco e-Cigarette/Vaping Use: Never Used Second Hand Smoke Exposure: No service: No Current occupational status: employed Cognitive needs: No Hearing needs: No Vision needs: Yes Review of Systems Const All systems reviewed & are unremarkable except as noted in HPI and below Physical Exam Vital Signs: Last Vital Signs Pulse 51 08/31/25 15:49 BP 130/80 08/31/25 15:49 Pulse Ox 98 08/31/25 15:49 Oxygen Delivery Method Room Air 08/31/25 15:49 BMI result Body Mass Index 31.8 Const General: comfortable and no acute distress Orientation/consciousness: patient oriented x3 HEENT Head: Yes normocephalic Mouth: Normal oral and palatal mucosa present Eyes EOM: EOMs intact bilaterally Neck Neck: Yes supple Resp Auscultation: clear to auscultation bilaterally Cardio Jugular venous distension: no JVD Rate: regular rate GI Palpation (GI): Soft to palpation Auscultation: normal bowel sounds General: Yes no CVA tenderness Back/Spine/Pelvis Back: no CVA tenderness Skin General skin exam: no rashes or lesions noted Neuro General: patient oriented x3 and moves all extremities Extrem General: Yes no pedal edema Assessment & Plan Assessment & Plan (1) Hypertension: Code(s): I10 - Essential (primary) hypertension Category: Medical Qualifiers: Hypertension type: primary hypertension Qualified Code(s): I10 - Essential (primary) hypertension Plan Sera has hypertension for long time. She had skin rashes from hydrochlorothiazide. She is currently on metoprolol and losartan. Her renal function normal. She does not have any proteinuria or retinopathy. She has no history of coronary artery disease, CHF, YAYA, PAD or CVA. She should be on a low-sodium diet. She should lose weight. She should monitor her blood pressure at home. I asked her to continue current dose of metoprolol and losartan. I did not make any other medication changes today. All recent data reviewed. She wants to meet weight management in [facility]. She is going to discuss with PCP. Follow-up given Orders: Orders Protein Creatinine Ratio, Ur 8 Months I10 - Essential (primary) hypertension Electrolytes 8 Months I10 - Essential (primary) hypertension Blood Urea Nitrogen 8 Months I10 - Essential (primary) hypertension Calcium 8 Months I10 - Essential (primary) hypertension Creatinine 8 Months I10 - Essential (primary) hypertension Coding Level of Care Code Est Pt Level 4 (27910) Diagnoses Primary hypertension I10 Hypertension type: primary hypertension
[2025-08-31 15:48] VITALS: BMI 31.8
[2025-08-31 15:49] VITALS: BP 130/80; PULSE 51; O2SAT 98
--- OUTSIDE RECORDS SUMMARY | 2025-08-31 18:19 | XMS_ITS | Patient Health Record ---
Author Organization [facility] Address [address] [place] [address] Care Team Providers Care Felled Seam Operator Name Role Phone Carlos A GRAY, Janice Primary Care Provider Evan Fierro [phone] Allergies Allergen (clinical drug ingredient) Drug/Non Drug Allergy documented on EMR Reaction Allergy Type Onset Date Status Sulfa Unknown Drug Allergy Active amoxicillin Amoxicillin Unknown Drug Allergy Act lakesha Reason For Referral No Information Medications Medication SIG (Take, Route, Frequency, Duration) Notes Start Date End Date Status Nadolol 40mg 11/18/2024 11/18/2024 Activ e hydroCHLOROthiazide 25mg 11/18/202411/2024 Active Social History Tobacco Use: Social History Observation Description Date Details (start date - stop date) Never Smoker NA - NA Tobacco Use/Smoking Question Answer Notes Patient is a nonsmoker Section Notes: Nonsmoker; no sig. alcohol Nonsmoker; no sig. 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 Plan Of Treatment Pending Test Test Name Order Date MRI ABD W&WO CONTRAST 05/02/2012 Insurance Providers Payer Name Payer Address Payer Phone Subscriber Number Group Number Insured Name Patient Relationship to Insured Coverage Start Date Coverage End Date [facility] [address] [facility] [place] [phone] [id number] PRIYANK AGUIRRE Self - patient is the insured Medical (General) History Medical History History ICD Code Cervical cancer 2004-treated by a cone b iopsy Hypertension Denies CO,DM,CVA,Lung disease,renal dise ase UTI's Off BCP's x 2 years Surgical History Surgery Date(Month/Year) cervical cone biopsy
--- OUTSIDE RECORDS SUMMARY | 2025-08-31 18:19 | XMS_ITS | Clinical Summary ---
Author Organization [address] Address [address] [place] [address] Phone Care Team Providers Care Architectural Project Manager Name Role Phone Janice Strauss MD Primary Care Provider Encounters Date Type Department Care Team Description 06/09/2025 7:41 AM EDT - 06/09/2025 11:59 PM EDT Hospital Encounter Radiology Department - [address] [phone] Encounter for screening mammogram for breast cancer Discharge Disposition: Home or Self Care from Last 3 Months Surgical History Surgery Date Site/Laterality Comments CERVICAL [...] Sexual Orientation Not on file Obstetrics History Para Term AB IAB SAB Ectopic Multiple Livin g Live Births 0 0 0 Plan of Treatment Health Maintenance Due Date Last Done Comments Colorectal Cancer Screening: Colonoscopy 1973 DTaP,Tdap,and Td Vaccines (1 - Tdap) 1992 Hepatitis B Vaccines (1 of 3 - 19+ 3-dose series) 1992 Cervical Cancer Screening: Pap Smear 1994 Cholesterol Screening (Lipid Panel) 10/28/2022 HIV Screening 10/28/2022 Hepatitis C Screening 10/28/2022 Social Influencers of Health Screening 10/28/2022 Pneumococcal Vaccine: 50+ Years (1 of 1 - PCV) 2023 Zoster Vaccines (1 of 2) 2023 Depression Screening 11/18/2024 Hypertension/CHF/CAD Annual BMP Blood Test 06/10/2025 COVID-19 Vaccine (3 - season) 2025 01/11/2021, 12/09/2020 Influenza Vaccine (#1) 2025 , 08/28/2023, 10/12/2022, Additional history exists Breast Cancer Screening 06/09/2027 06/09/20, 06/04/2024, 06/04/2024, Additional history exists RSV Immunization Adult Patients (1 - 1-dose 75+ series) 2048 HIB Vaccines Aged Out No longer eligi [...] Procedure Name Priority Date/Time Associated Diagnosis Comments MG MAMMO DIGITAL SCREENING W RODOLFO BILAT Routine 06/09/2025 7:57 AM EDT Encounter for screening mammogram for breast cancer from Last 3 Months Results * MG Mammo Digital Screening w Rodolfo bilat (06/09/2025 7:57 AM EDT) Anatomical Region Laterality Modality Breast Bilateral Mammography 06/10/2025 11:1 6 AM EDT Impressions 06/10/2025 11:21 AM EDT 1. No mammographic evidence of malignancy 2. Scattered fibroglandular tissue BI-RADS CATEGORY: 2 - BENIGN RECOMMENDATION: Screening bilateral mammogram is recommended in 1 year. Mammo Location: [facility], [address] [place] [address], [address], . -------- FINAL REPORT -------- Dictated By: Francheska King Dictated Date: 06/10/2025 11:16 ET Assigned Physician: Francheska King Reviewed and Electronically Signed By: Francheska King Signed Date: 06/10/2025 11:21 ET Workstation ID: [id number] Transcribed By: Self Edit Transcribed Date: 06/10/2025 11:16 ET Narrative 06/10/2025 11:21 AM EDT A BILATERAL DIGITAL 3D SCREENING MAMMOGRAPHY HISTORY: Routine screening. Family history of breast cancer in mother and grandmother COMPARISON: Multiple priors dating back to 02/01/2021 Technique: Bilateral full field digital mammography (3D) was performed using standard CC and MLO projections CAD was used to evaluate this mammogram. FINDINGS: Right: No suspicious masses, groups of microcalcification or areas of architectural distortion identified. Stable typically benign parenchymal asymmetries. Left: No suspicious masses, groups of microcalcification or areas of architectural distortion identified. Stable typically benign parenchymal asymmetries. BREAST DENSITY: B - There are scattered areas of fibroglandular density. Procedure Note Francheska King MD - 06/10/2025 A BILATERAL DIGITAL 3D SCREENING MAMMOGRAPHY HISTORY: Routine screening. Family history of breast cancer in mother andgrandmother COMPARISON: Multiple priors dating back to 02/01/2021 Technique: Bilateral full field digital mammography (3D) was performedusing standard CC and MLO projections CAD was used to evaluate this mammogram. FINDINGS: Right: No suspicious masses, groups of microcalcification or areas ofarchitectural distortion identified. Stable typically benign parenchymalasymmetries. Left: No suspicious masses, groups of microcalcification or areas ofarchitectural distortion identified. Stable typically benign parenchymalasymmetries. BREAST DENSITY: B - There are scattered areas of fibroglandular density. IMPRESSION: 1. No mammographic evidence of malignancy 2. Scattered fibroglandular tissue BI-RADS CATEGORY: 2 - BENIGN RECOMMENDATION: Screening bilateral mammogram is recommended in 1 year. Mammo Location: [facility], [address] [place] [address], [address], . -------- FINAL REPORT -------- Dictated By: Francheska King Dictated Date: 06/10/2025 11:16 ET Assigned Physician: Francheska King Reviewed and Electronically Signed By: Francheska King Signed Date: 06/10/2025 11:21 ET Workstation ID: [id number] Transcribed By: Self Edit Transcribed Date: 06/10/2025 11:16 ET us Janice Strauss MD IMG BI PROCEDURES Final Res ult from Last 3 Months Insurance [employer] Care Teams Architectural Project Manager Relationship Specialty Start Date End Date Janice Strauss MD [address] [place] [address] PCP - General 02/27/10
--- OUTSIDE RECORDS SUMMARY | 2025-08-31 18:19 | XMS_ITS | Patient Health Record ---
Author Organization [facility] Address [address] [facility] [address] [place] [address] Care Team Providers Care Senior Quality Analyst Name Role Phone ELIDA ANDERSON MD Primary Care Provider Unav KADI Keenan Unavailable [phone] Allergies Allergen (clinical drug ingredient) Drug/Non Drug Allergy documented on EMR Reaction Allergy Type Onset Date Status amoxicillin Amoxicillin rash Drug Allergy Act lakesha sulfamethoxazole / trimethoprim Bactrim rash Drug Allergy Active lisinopril Lisinopril abdominal pain Drug Allergy Active amlodipine Amlodipine flushing of lower extremity Drug Allergy Active Reason For Referral No Information Medications Medication SIG (Take, Route, Frequency, Duration) Notes Start Date End Date Status Citalopram Hydrobromide 10 MG 1 tablet Orally Once a day Active Atorvastatin Calcium 20 MG TAKE 1 TABLET BY MOUTH EVERY DAY Oral; Duration: 90 Days Active Losartan Potassium 50 MG Oral; Duration: 90 Days Active Metoprolol Tartrate 75 MG 1 tablet with food Orally Twice a day Active Social History Tobacco Use: Social History Observation Description Date Details (start date - stop date) Never Smoker NA - NA Sexual History Question Answer Notes Had sex in the past 12 months (vaginal, oral, or anal)? Yes with Men only Use protection? Yes How often? All of the time Have you ever had a Sexually transmitted disease ? No Last menstrual period 03/18/2023 AUDIT-C (Standard) Question Answer Notes Did you have a drink contain ing alcohol in the past year? Yes How often did you have a dri nk containing alcohol in the past year? 2 to 4 times a month (2 points) How many drinks did you have on a typical day when you were drinking in the past year? 1 or 2 drinks (0 point) How often did you have six o r more drinks on one occasion in the past year? Never (0 point) Points 2 Interpretation Negative Tobacco Control (Standard) Question Answer Notes Tobacco use: Nonsmoker Problems Problem Type SNOMED Code ICD Code Onset Dates Problem Status W/U Status Risk Notes Problem Essential hypertension (35318484) Essential (primary) hypertension (I10) Active confirmed Problem Anxiety disorder (018235636) Anxiety disorder, unspecified (F41.9) Active confirmed Problem COVID-19 (751904708) COVID-19 (U07.1) Active confirmed Vital Signs Temperature 97.8 degrees Fahrenheit 03/22/2025 Blood pressure diastolic 80 mm Hg 03/22/2025 Height 63 in 03/22/2025 Blood pressure systolic 126 mm Hg 03/22/2025 Weight 173 lbs 03/22/2025 BMI 30.64 kg/m2 03/22/2025 Encounters Encounter Location Date Provider Diagnosis [facility] [address] [place] [address] 03/22/2025 KADI KENDRICK Encounter for gynecological examination (general) (routine) without abnormal findings Z01.419 and Encounter for screening mammogram for malignant neoplasm of breast Z12.31 Assessments Encounter Date Diagnosis (ICD Code) Assessment Notes Treatment Notes Treatment Clinical Notes Section Notes 03/22/2025 Encounter for gynecological examination (general) (routine) without [...] to keep colon screening up to date. 03/22/2025 Encounter for screening mammogram for malignant neoplasm of breast (ICD-10 - Z12.31) Plan Of Treatment Pending Test Test Name Order Date MM Digital Screening Mammogram 3D 2024 Next Appt Details Provider Name:KADI Macias, 03/28/2026 11:00:00 AM, [address], [address], [place], [address], Insurance Providers Payer Name Payer Address Payer Phone Subscriber Number Group Number Insured Name Patient Relationship to Insured Coverage Start Date Coverage End Date DIV[employer]IED ADMINISTRATION [address] [place] [phone] [id number] PRIYANK AGUIRRE Self - patient is the insured Medical (General) History Medical History History ICD Code Essential (primary) hypertension I10 Anxiety disorder, unspecified F41.9 COVID-19 U07.1 Surgical History Surgery Date(Month/Year) Cone Biopsy 2004
== END 2025-09-01 09:58 | disposition home or self-care (01) ==
LOC: HO.HKAS 15:36
PROVIDERS: PCP Internal Medicine; Visit Provider Internal Medicine Nephrology
DX: I10 Essential (primary) hypertension (principal)
CPT/HCPCS: 99214